=== PATIENT | female | born 1935 | race Caucasian/White ===

== ENCOUNTER 2016-12-26 09:24 | Observation (INO) ==
[2016-12-26] MEDS ORDERED: 0.9 % Sodium Chloride 1,000 ML IVC ONE (09:57)
[2016-12-26] MEDS ORDERED: Ondansetron 4 MG/2 ML VIAL IVP ONE (09:57)
--- NOTE | 2016-12-26 10:02 | Emergency Department Note ---
Disposition Clinical Impression: Syncopal episodes Qualifiers: Syncope type: unspecified Qualified Code(s): R55 - Syncope and collapse Disposition: Admitted As Inpatient Condition: Fair Time of Disposition: 13:00 Syncope HPI - General Chief Complaint: ED Fall Stated Complaint: Fall Time Seen by Provider: 12/26/16 09:35 Source: EMS Mode of arrival: EMS Limitations: no limitations Nursing Notes Reviewed: Yes Vital Signs Reviewed: Yes - History of Present Illness HPI Narrative: She presents to the emergency department brought in by EMS squad. Apparently this morning she was making her Tea for her breakfast and felt faint that she was going to throw out did make it to the table set down but then passed out and family found her under the kitchen table. She apparently was out for approximately 3 minutes which at that time she was incontinent of some urine which is a new finding for her. She has had one previous episode of syncope. At this time she complains of no headache she has lightly nauseous but she states that the nausea is something that she deals with on a day-to-day basis. She had a TIA approximately 15 years ago with no residual effects. He does have arthritis and is on methotrexate on a daily basis. At this time she complains of her right knee is slightly sore where she fell, states that there is some bruising. She does have ice on this knee at this time. No other complaints. Pt Subjective Complaint: loss of consciousness Onset (ago): [employer] Duration: minutes(s) (2) Description of Event: incontinence Prodromal Symptoms: none Injuries Sustained Associated with Event: other (bruising to the right knee ) Current Symptoms: nausea History: none Treatments prior to arrival: none Associated trauma secondary to event: No - Related Data Home Medications Medication Instructions Recorded Confirmed Alprazolam [Xanax] 0.5 mg PO BID 03/05/15 12/26/16 Clopidogrel [Plavix] 75 mg PO QAM 03/05/15 12/26/16 Folic Acid 0.4 mg PO BID 03/05/15 12/26/16 Indapamide [Lozol] 1.25 mg PO QAM 03/05/15 12/26/16 Methotrexate [Otrexup] 25 mg PO TU 03/05/15 12/26/16 Metoprolol XL (24 HR) Succ [Toprol 50 mg PO BID 03/05/15 12/26/16 XL] Ramipril [Altace] 10 mg PO DAILY 03/05/15 12/26/16 Ranitidine HCl [Zantac] 300 mg PO BID PRN 03/05/15 12/26/16 Aspirin 81 mg PO DAILY 12/26/16 12/26/16 Allergies Allergy/AdvReac Type Severity Reaction Status Date / Time Cephalosporins Allergy Hives Verified 08/07/15 16:42 Penicillins Allergy Hives Verified 08/07/15 16:42 Propoxycaine Allergy Hives Verified 08/07/15 16:42 Sulfa (Sulfonamide Allergy Hives Verified 08/07/15 16:42 Antibiotics) acetaminophen [From [place]] AdvReac Nausea Verified 08/07/15 16:42 hydrocodone [From [place]] AdvReac Nausea Verified 08/07/15 16:42 All systems ED: reviewed and negative except as stated. Constitutional: Denies: fever, chills, weakness, weight change Eyes: Denies: eye pain, eye discharge, vision change ENT ED: Denies: ear pain, throat pain, dental pain, hearing loss, epistaxis, congestion, dysphagia Cardiovascular: Denies: chest pain, palpitations, dyspnea on exertion, edema, syncope Respiratory: Denies: cough, dyspnea, wheezes, hemoptysis, stridor Gastrointestinal: Reports: nausea. Denies: abdominal pain, vomiting, diarrhea, constipation, hematemesis, melena, hematochezia Genitourinary: Denies: dysuria, frequency, hematuria, discharge Musculoskeletal: Reports: other (right knee pain ) Integumentary: Denies: rash, abrasion, lesions Past Medical History - Past Medical History Attestation: Yes The following information was validated with the patient. Source: patient, nursing notes reviewed Medical history: Reports: COPD, fibromyalgia, hyperlipidemia, hypertension, peripheral artery disease, RA, TIA Surgical history: Reports: carotid endarterectomy, cholecystectomy Psychiatric history: Reports: no psych history - Social History Smoking Status: Former smoker Smokeless Tobacco Status: No Alcohol use: Reports: none Drug use: Reports: none Physical Exam - General Limitations: no limitations General appearance: alert, in no apparent distress - Head Head exam: atraumatic, normocephalic, normal inspection - Eye Eye exam: Present: normal appearance, PERRL, EOMI - ENT ENT exam: normal exam, normal oropharynx, mucous membranes moist - Neck Neck exam: Present: normal inspection, full ROM, trachea midline - Chest Chest inspection: Present: normal inspection, symmetric chest wall rise - Respiratory Respiratory exam: Present: normal lung sounds bilaterally - Cardiovascular Cardiovascular exam: Present: regular rate, normal rhythm, normal heart sounds - Abdominal Exam Abdominal exam: Present: soft, Non-Tender, normal bowel sounds. Absent: tenderness, distention, guarding, rebound, rigidity - Extremities Exam Extremities exam: Present: normal inspection, full ROM. Absent: tenderness, pedal edema - Expanded Lower Extremity Exam Hip/Pelvis exam: Present: normal inspection, full ROM Upper leg exam: Present: normal inspection, full ROM Knee exam: Present: tenderness (right ), ecchymosis (minimal) Lower leg exam: Present: normal inspection, full ROM Ankle exam: Present: normal inspection, full ROM Foot/toe exam: Present: normal inspection, full ROM Neurovascular/Tendon exam: Absent: motor deficit, sensory deficit, tendon deficit - Back Exam Back exam: Present: normal inspection, full ROM. Absent: tenderness - Neurological Exam Neurological exam: Present: alert, oriented X3, CN II-XII intact, normal gait, reflexes normal - Psychiatric Psychiatric exam: Present: normal affect, normal mood - Skin Skin exam: Present: warm, dry, intact, normal color Course - Reevaluation(s) Reevaluation #1: discussed lab and xray results up to this point. Advised that if CT negative then likely will discharge patient to home. Daughter is in disagreement with this plan and upset that we may send her home. She states she feels patient needs to stay in the hospital, as she states patient was unable to talk with her for "a full 2 minutes, and that's not right, she's never done that before". Patient was also incontinent at that time, and this is a new finding for her, she has never had any incontinence. She is now complaining of pain in the right hand and ecchymosis of the right thumb that was not there previously. Will order xray of hand and thumb for further evaluation. Time: 11:15 - Consultations Consultation #1: hospitalist paged for admission Time: 12:45 Vital Signs Temperature 98.1 F 12/26/16 09:26 Pulse Rate 72 12/26/16 09:26 Respiratory Rate 18 12/26/16 09:26 Blood Pressure 116/86 12/26/16 09:26 O2 Sat by Pulse Oximetry 96 12/26/16 09:26 Temperature 98.1 F 12/26/16 09:26 Pulse Rate 62 12/26/16 12:32 Respiratory Rate 16 12/26/16 13:54 Blood Pressure 152/63 12/26/16 13:54 O2 Sat by Pulse Oximetry 97 12/26/16 12:32 Oxygen Delivery Oxygen Delivery Room Air Syncope - Lab Data Result diagrams: 12/26/16 10:07 12/26/16 10:07 Lab Results 12/26/16 12/26/16 12/26/16 Range/Units 10:07 10:07 10:07 WBC 7.1 (4.3-11.1) K/mcL RBC 3.32 L (3.82-4.97) M/mcL Hgb 10.3 L (11.5-15.4) g/dL Hct 29.9 L (35.3-44.9) % MCV 90.1 (83.0-100.0) fL MCH 31.0 (28.0-33.3) pg MCHC 34.4 (31.6-35.5) g/dL RDW 14.2 (11.5-14.5) % Plt Count 263 (140-400) K/mcL MPV 9.0 L (9.4-12.4) fL Immature Gran % 0.3 (0-4) % Seg Neutrophils % 76.5 % Lymphocytes % 14.5 % Monocytes % 6.9 % Eosinophils % 1.7 % Basophils % 0.1 % Neutrophils # 5.4 (1.6-8.9) K/mcL Lymphocytes # 1.0 (0.6-4.6) K/mcL Monocytes # 0.5 (0.0-1.3) K/mcL Eosinophils # 0.1 (0.0-0.6) K/mcL Basophils # 0.0 (0.0-0.2) K/mcL PT 12.3 H (9.4-12.1) Seconds INR 1.1 Sodium 125 L (136-145) mEq/L Potassium 3.6 (3.5-4.5) mEq/L Chloride 86 L (98-109) mEq/L Carbon Dioxide 30 H (19-29) mEq/L BUN 12 (7-20) mg/dL Creatinine 0.97 (0.57-1.11) mg/dL Est GFR ( Amer) > 60 (> 60) Est GFR (Non-Af Amer) 55 L (> 60) BUN/Creatinine Ratio 12 (6-26) Glucose 111 H (70-99) mg/dL Calculated Osmolality 260 L (280-300) Calcium 9.3 (8.6-10.8) mg/dL Total Bilirubin 0.6 (0.2-1.2) mg/dL AST 17 (5-34) Units/L ALT 11 (0-55) Units/L Alkaline Phosphatase 57 (38-126) Units/L Troponin I (0-0.03) ng/mL Serum Total Protein 6.5 (6.0-8.3) g/dL Albumin 3.3 L (3.5-5.0) g/dL Globulin 3.2 (2.4-3.5) g/dL Albumin/Globulin Ratio 1.0 L (1.1-2.2) 12/26/16 Range/Units 10:20 WBC (4.3-11.1) K/mcL RBC (3.82-4.97) M/mcL Hgb (11.5-15.4) g/dL Hct (35.3-44.9) % MCV (83.0-100.0) fL MCH (28.0-33.3) pg MCHC (31.6-35.5) g/dL RDW (11.5-14.5) % Plt Count (140-400) K/mcL MPV (9.4-12.4) fL Immature Gran % (0-4) % Seg Neutrophils % % Lymphocytes % % Monocytes % % Eosinophils % % Basophils % % Neutrophils # (1.6-8.9) K/mcL Lymphocytes # (0.6-4.6) K/mcL Monocytes # (0.0-1.3) K/mcL Eosinophils # (0.0-0.6) K/mcL Basophils # (0.0-0.2) K/mcL PT (9.4-12.1) Seconds INR Sodium (136-145) mEq/L Potassium (3.5-4.5) mEq/L Chloride (98-109) mEq/L Carbon Dioxide (19-29) mEq/L BUN (7-20) mg/dL Creatinine (0.57-1.11) mg/dL Est GFR ( Amer) (> 60) Est GFR (Non-Af Amer) (> 60) BUN/Creatinine Ratio (6-26) Glucose (70-99) mg/dL Calculated Osmolality (280-300) Calcium (8.6-10.8) mg/dL Total Bilirubin (0.2-1.2) mg/dL AST (5-34) Units/L ALT (0-55) Units/L Alkaline Phosphatase (38-126) Units/L Troponin I 0.02 (0-0.03) ng/mL Serum Total Protein (6.0-8.3) g/dL Albumin (3.5-5.0) g/dL Globulin (2.4-3.5) g/dL Albumin/Globulin Ratio (1.1-2.2)
[2016-12-26 10:24] LABS: Basophils % 0.1 %; Eosinophils # 0.1 K/mcL (0.0-0.6); Eosinophils % 1.7 %; Hematocrit 29.9 % (35.3-44.9); Hemoglobin 10.3 g/dL (11.5-15.4); Immature Granulocytes % 0.3 % (0-4); Lymphocytes % 14.5 %; Mean Corpuscular HGB Conc 34.4 g/dL (31.6-35.5); Mean Corpuscular Volume 90.1 fL (83.0-100.0); Monocytes # 0.5 K/mcL (0.0-1.3); Monocytes % 6.9 %; Neutrophils # 5.4 K/mcL (1.6-8.9); Platelet Count 263 K/mcL (140-400); Red Blood Count 3.32 M/mcL (3.82-4.97); Red Cell Distribution Width 14.2 % (11.5-14.5); Segmented Neutrophils % 76.5 %
[2016-12-26 10:28] LABS: INR 1.1; Prothrombin Time 12.3 Seconds (9.4-12.1)
[2016-12-26 10:39] LABS: Alanine Aminotransferase 11 Units/L (0-55); Albumin 3.3 g/dL (3.5-5.0); Alkaline Phosphatase 57 Units/L (38-126); Aspartate Amino Transferase 17 Units/L (5-34); BUN/Creatinine Ratio 12 (6-26); Bilirubin,Total 0.6 mg/dL (0.2-1.2); Blood Urea Nitrogen 12 mg/dL (7-20); Calcium 9.3 mg/dL (8.6-10.8); Carbon Dioxide 30 mEq/L (19-29); Chloride 86 mEq/L (98-109); Globulin 3.2 g/dL (2.4-3.5); Glucose 111 mg/dL (70-99); Osmolality,Calculated 260 (280-300); Potassium 3.6 mEq/L (3.5-4.5); Sodium 125 mEq/L (136-145); Total Protein 6.5 g/dL (6.0-8.3); eGFR For African Americans > 60 (> 60); eGFR For Non-African Americans 55 (> 60)
[2016-12-26] MEDS ORDERED: Naloxone 0.4 MG/ML INJ IVP PRN (13:35)
[2016-12-26] MEDS ORDERED: Famotidine 20 MG TABLET PO PRN (13:55)
--- NOTE | 2016-12-26 14:10 | Internal Med History&Physical ---
Date of Encounter: 12/26/16 Time of Encounter: 14:01 Assessment and Plan (1) Syncope and collapse Current visit: Yes Status: Acute We will place the patient on observation. We will provide equipment monitor phototypesetting. Trend troponin. Obtain echocardiogram and carotid Doppler's to evaluate for cardiogenic syncope. Obtain orthostatic vital signs. Obtain EEG to rule out seizure given reported tremors and bladder incontinence. (2) Carotid artery stenosis Current visit: Yes Status: Acute Repeat carotid Dopplers. Qualifiers: Laterality: bilateral Qualified Code(s): I65.23 - Occlusion and stenosis of bilateral carotid arteries (3) Essential hypertension Current visit: Yes Status: Acute Continue with ramipril and metoprolol. Monitor blood pressure closely. Check orthostatics. (4) DVT prophylaxis Current visit: No Status: Acute Encourage early ambulation. No pharmacological prophylaxis indicated to expected short stay less than 24-hours and full ambulatory status. (5) Rheumatoid arthritis Current visit: No Status: Chronic Continue methotrexate. Oral pain medication. Qualifiers: Rheumatoid arthritis location: unspecified site Rheumatoid factor presence : unspecified presence Qualified Code(s): M06.9 - Rheumatoid arthritis, unspecified Internal Medicine - H&P: HPI Chief complaint: Syncope Admitted From: Emergency Dept Plans for Post Hospital Care: Home History of present illness: Ms. Lo is a 81 year old female with past medical history significant for TIA, hypertension, carotid stenosis and rheumatoid arthritis who presented to the hospital for syncope. The history is obtained from the patient and the patient's daughter was present during the event. Patient woke up this morning and as usual made herself a tea and while standing by the kitchen counter she started feeling weak and lightheaded. She walked towards the chair and felt faint. Soon thereafter her daughter heard a thud and found her sitting on the floor leaning against the furniture. She was unresponsive for about 2 minutes, she was drooling and her right arm was shaky. She had lost bladder continence during the event. After she came to she was fully aware of her surroundings had no amnesia, denied any chest pain or palpitation preceding or following the event. She was brought to the hospital where her initial workup was negative. Review of systems positive for chronic pain secondary to rheumatoid arthritis, chronic constipation, history of syncope long time ago while sitting on a commode. Negative for dysuria urinary frequency and incontinence other than today's event. Positive for hearing loss and age-related vision impairment. The remainder of a temporary review of systems was negative. Past medical and surgical history: As per the history of present illness. Additionally positive for renal artery stenosis, renal artery stent placement, carotid endarterectomy. Family history positive for for stroke and the patient's mother and colon cancer in the patient's father. Social history: Patient has a remote history of smoking quit more than 20 years ago, denies alcohol and recreational drug use. She lives with her daughter and she is physically active. Past Med Surg Social Fam HX - Past Medical History Medical history: COPD, fibromyalgia, hyperlipidemia, hypertension, peripheral artery disease, RA, TIA Psychiatric history: no psych history - Past Surgical History Surgical History: carotid endarterectomy, cholecystectomy - Social History Smoking Status: Former smoker Smokeless Tobacco Status: No Alcohol use: none Drug use: none Internal Medicine - H&P: Meds Alprazolam [Xanax] 0.5 mg PO BID 03/05/15 [History] Clopidogrel [Plavix] 75 mg PO QAM 03/05/15 [History] Folic Acid 0.4 mg PO BID 03/05/15 [History] Indapamide [Lozol] 1.25 mg PO QAM 03/05/15 [History] Methotrexate [Otrexup] 25 mg PO TU 03/05/15 [History] Metoprolol XL (24 HR) Succ [Toprol XL] 50 mg PO BID 03/05/15 [History] Ramipril [Altace] 10 mg PO DAILY 03/05/15 [History] Ranitidine HCl [Zantac] 300 mg PO BID PRN 03/05/15 [History] Aspirin 81 mg PO DAILY 12/26/16 [History] Allergies Cephalosporins Allergy (Verified 08/07/15 16:42) Hives Penicillins Allergy (Verified 08/07/15 16:42) Hives Propoxycaine Allergy (Verified 08/07/15 16:42) Hives Sulfa (Sulfonamide Antibiotics) Allergy (Verified 08/07/15 16:42) Hives acetaminophen [From [place]] Adverse Reaction (Verified 08/07/15 16:42) Nausea hydrocodone [From [place]] Adverse Reaction (Verified 08/07/15 16:42) Nausea All Systems PM: A 10-system review of systems was performed and is negative for pertinent findings except as documented above in the HPI. - Constitutional Vitals: Temp Pulse Resp BP Pulse Ox 98.1 F 62 16 152/63 97 12/26/16 09:26 12/26/16 12:32 12/26/16 13:54 12/26/16 13:54 12/26/16 12:32 General appearance: Present: A&O X 3 - Neck Neck exam general surgery: Present: supple, trachea midline. Absent: lymphadenopathy - Respiratory Respiratory exam: Present: CTAB. Absent: accessory muscle use, rales, rhonchi, wheezes - Cardiovascular Cardiovascular exam: Present: RRR, +S1, +S2. Absent: diastolic murmur, gallop, rubs, systolic murmur - GI/Abdominal GI/Abdominal exam: Present: normal bowel sounds, soft, no peritoneal signs. Absent: distended, tenderness - Extremities Exam Extremities exam: Present: warm, radial pulses palpable and symetrical. Absent : calf tenderness, cyanotic, pedal edema - Neurological Exam Neurological exam: Present: CN II-XII intact, oriented X3, no focal deficits. Absent: pronater drift, facial droop, speech deficit - Skin Skin exam: Present: dry, intact Internal Med - H&P Results - Labs CBC & Chem 7: 12/26/16 10:07 12/26/16 10:07 Labs: Short CBC 12/26/16 Range/Units 10:07 WBC 7.1 (4.3-11.1) K/mcL Hgb 10.3 L (11.5-15.4) g/dL Hct 29.9 L (35.3-44.9) % Plt Count 263 (140-400) K/mcL Neutrophils # 5.4 (1.6-8.9) K/mcL BMP 12/26/16 10:07 Sodium 125 L Potassium 3.6 Chloride 86 L Carbon Dioxide 30 H BUN 12 Creatinine 0.97 Glucose 111 H Calcium 9.3 Cardiac Enzymes 12/26/16 Range/Units 10:20 Troponin I 0.02 (0-0.03) ng/mL Liver Function 12/26/16 Range/Units 10:07 Total Bilirubin 0.6 (0.2-1.2) mg/dL AST 17 (5-34) Units/L ALT 11 (0-55) Units/L Alkaline Phosphatase 57 (38-126) Units/L Albumin 3.3 L (3.5-5.0) g/dL - EKG Data -: EKG Interpreted by Myself EKG shows normal: sinus rhythm (70 bpm, LVH with no ST or T-wave changes.) - Impressions ITS Impressions Per medical records review: Echocardiogram from February 2015 reveals 60% EF, normal LV systolic function. Carotid Dopplers from February 2016 shows 30-49% left ICA stenosis, normal right ICA with nonstenotic plaque. Knee X-Ray 12/26/16 09:57 IMPRESSION: 1. No acute radiographic finding to account for patient's right knee pain. D/ / Tony Neri MD / Tony Neri MD Interpreting Provider: Tony Neri MD Head CT 12/26/16 10:06 IMPRESSION: 1. No acute intracranial abnormality. D/ / 12/26/2016 11:15:31 Tony Neri MD / jovanni Interpreting Provider: Tony Neri MD Hand X-Ray 12/26/16 11:10 IMPRESSION: Soft tissue swelling without acute or focal bony abnormality. D/ / Madhavi Muller Cha, MD / Madhavi Muller Cha, MD Interpreting Provider: Madhavi Muller Cha, MD
[2016-12-26 14:38] LABS: Bilirubin,Urine Negative (Negative); Blood,Urine Negative (Negative); Clarity,Urine Clear (Clear); Color,Urine Yellow (Yellow); Glucose,Urine (UA) Normal (Normal); Ketones,Urine Negative (Negative); Leukocyte Esterase,Urine Small (Negative); Nitrite,Urine Negative (Negative); PH,Urine 6.5 pH Units (5.0-8.0); Protein,Urine Negative (Neg-Trace); Specific Gravity,Urine 1.008 (1.010-1.025); Urobilinogen,Urine Normal (Normal)
[2016-12-26 14:39] LABS: Bacteria,Urine None Seen per hpf (None-Few); Hyaline Casts,Urine None Seen per lpf (None-Few); RBC,Urine 0-3 per hpf (0-3); Squamous Epithelial Cell,Urine Many per lpf (None-Few); WBC,Urine 0-3 per hpf (0-3)
[2016-12-26] MEDS: 0.9 % Sodium Chloride 1,000 ML IVC SCH (16:12)
--- NOTE | 2016-12-26 17:14 | Carotid Imaging Report ---
Carotid Duplex Patient Name:Amie Lo Order Number:[id number] Procedure Date:12/26/2016 Date:6Age:81 yrs Gender:Female Location:[facility] Room #: Electrical Engineering Teacher:Christel Lomax RVT Referring MD:Yesenia Morton, LINE REPAIRER hydrology technician:Arsenio Valdez MD Reading MD:Edu Frye MD , FACS Primary Indications:syncope Risk Factors Yes/No Hypertension Yes Smoker Previous Yes Anticoagulants Yes Previous Vascular Surgery Yes Hypercholesterolemia Yes Impressions: Findings: Right carotid system has nonstenotic plaque. Findings: Left proximal ICA has a moderate, 40-59% stenosis. Findings Prior Intervention: The patient has undergone the following procedure: endarterectomy of the internal carotid artery on the right. Carotid Duplex: Right: There is nonstenotic plaque in the right distal common carotid artery. There is smooth homogeneous plaque. There is nonstenotic plaque in the right bifurcation. There is smooth homogeneous plaque. There is nonstenotic plaque in the right proximal internal carotid artery. There is smooth homogeneous plaque. There is nonstenotic plaque in the right mid internal carotid artery. There is smooth homogeneous plaque. There is nonstenotic plaque in the right eca. There is smooth homogeneous plaque. Left: There is nonstenotic plaque in the left bifurcation. There is smooth heterogeneous plaque. There is nonstenotic plaque in the left mid internal carotid artery. There is smooth homogeneous plaque. There is nonstenotic plaque in the left eca. There is smooth homogeneous plaque. Carotid Results Right PSV EDV Assessment Proximal CCA 78 16 Normal Mid CCA 80 18 Normal Distal CCA 96 20 Non Stenotic Plaque Bifurcation 72 18 Non Stenotic Plaque Proximal ICA 82 14 Non Stenotic Plaque Mid ICA 103 26 Non Stenotic Plaque Distal ICA 80 19 Normal ECA 63 0 Non Stenotic Plaque Vertebral Artery 68 18 Antegrade Flow Left PSV EDV Assessment Proximal CCA 89 14 Normal Mid CCA 100 16 Normal Distal CCA 79 14 Normal Bifurcation 81 15 Non Stenotic Plaque Proximal ICA 124 32 40-59% stenosis Mid ICA 99 25 Non Stenotic Plaque Distal ICA 61 12 Normal ECA 75 0 Non Stenotic Plaque Vertebral Artery 74 6 Antegrade Flow Ratio's Right ICA/CCA Ratio: 1.28 ICA/CCA Values: 103/80 Left ICA/CCA Ratio: 1.24 ICA/CCA Values: 124/100 Updated by Edu Frye MD, FACS on 12/26/2016 5:07:55 PM Edu Frye MD electronically signed on 12/26/2016 5:08:29 PM with status of Final
[2016-12-26] MEDS ORDERED: ALPRAZolam 0.5 MG TABLET PO ONE (20:23)
[2016-12-26] MEDS: Metoprolol XL (24 HR) Succ 50 MG TAB.ER.24H PO SCH (20:59)
[2016-12-27 03:55] LABS: Basophils % 0.1 %; Eosinophils # 0.2 K/mcL (0.0-0.6); Eosinophils % 2.3 %; Hemoglobin 9.5 g/dL (11.5-15.4); Immature Granulocytes % 0.4 % (0-4); Lymphocytes # 1.9 K/mcL (0.6-4.6); Lymphocytes % 21.6 %; Mean Corpuscular HGB Conc 33.9 g/dL (31.6-35.5); Mean Corpuscular Hemoglobin 30.7 pg (28.0-33.3); Mean Corpuscular Volume 90.6 fL (83.0-100.0); Mean Platelet Volume 9.2 fL (9.4-12.4); Monocytes # 0.6 K/mcL (0.0-1.3); Neutrophils # 5.9 K/mcL (1.6-8.9); Platelet Count 261 K/mcL (140-400); Red Blood Count 3.09 M/mcL (3.82-4.97); Red Cell Distribution Width 14.2 % (11.5-14.5); Segmented Neutrophils % 68.6 %
[2016-12-27 04:12] LABS: BUN/Creatinine Ratio 9 (6-26); Blood Urea Nitrogen 7 mg/dL (7-20); Carbon Dioxide 29 mEq/L (19-29); Chloride 94 mEq/L (98-109); Chol/HDL Ratio 4.5 (0-4.9); Cholesterol 149 mg/dL (< 200); Glucose 97 mg/dL (70-99); HDL Cholesterol 33 mg/dL (40-59); LDL Cholesterol,Calculated 97 mg/dL (0-99); Magnesium 1.4 mg/dL (1.6-2.6); Osmolality,Calculated 270 (280-300); Potassium 3.4 mEq/L (3.5-4.5); Sodium 131 mEq/L (136-145); Triglycerides 95 mg/dL (< 150); eGFR For African Americans > 60 (> 60); eGFR For Non-African Americans > 60 (> 60)
[2016-12-27] MEDS: 0.9 % Sodium Chloride 1,000 ML IVC SCH (05:39)
[2016-12-27] MEDS: Metoprolol XL (24 HR) Succ 50 MG TAB.ER.24H PO SCH ×2 (08:50→21:01)
[2016-12-27] MEDS: Folic Acid 1 MG TABLET PO SCH (08:50)
[2016-12-27] MEDS: Aspirin 81 MG TAB.CHEW PO SCH (08:50)
[2016-12-27] MEDS: Lisinopril 20 MG TABLET PO SCH (08:51)
[2016-12-27] MEDS ORDERED: SODIUM CHLORIDE/NAHCO3/KCL/PEG 4,000 ML SOLN.RECON PO ONE (14:29)
[2016-12-27] MEDS ORDERED: Magnesium Sulfate 1 GM in D5% in Water 100 ML IVPB ONE (14:31)
[2016-12-27] MEDS ORDERED: Acetaminophen 325 MG TABLET PO PRN (14:34)
[2016-12-27] MEDS ORDERED: traMADol 50 MG TABLET PO PRN (14:34)
[2016-12-27] MEDS ORDERED: *HR* Morphine 2 MG/ML SYRINGE IVP PRN (14:34)
[2016-12-27] MEDS ORDERED: *HR* Promethazine 25 MG/ML VIAL IVP PRN (14:34)
[2016-12-27] MEDS ORDERED: Ondansetron 4 MG/2 ML VIAL IVP PRN (14:34)
--- NOTE | 2016-12-27 14:38 | Internal Med Progress Note ---
Date of Encounter: 12/27/16 Time of Encounter: 13:30 - Assessment and plan (1) Syncope and collapse Current Visit: Yes Status: Acute Assessment and plan: Unclear causation at this time. Knee x-ray negative. Head CT negative. Hand x -ray negative. Carotid duplex with moderate stenosis on the left and otherwise unremarkable. Echocardiogram unremarkable with ejection fraction of 60-65% with mild diastolic dysfunction. Patient euvolemic on examination. EEG still pending. Patient is stating on this episode, she remembers having severe lower abdominal pain with the strong urge to defecate right before she passed out. Patient's syncopal episode was witnessed by her daughter who states that the patient was out for 2 minutes. Patient stating that she has had this before where she was sitting on a toilet and bearing down she passed out. Suspect that episode may have been vasovagal however the episode that brought her to the hospital this visit could possibly be related to ischemic colitis with her small vessel disease history of RA as a potentially contributing factor. Patient states that after she has a severe bouts of lower abdominal pain with a severe urge to defecate, that her stool changes consistency and turns into what appears to be "worms." She states they are not actual worms in that they are not moving but they appeared worm like. She denies any hematochezia or nohemi blood. Spoke to GI doctor Lorenza. Plan is for bowel prep tonight with colonoscopy tomorrow. Anemia slightly lower than norm- guiac pending. ITS Impressions Knee X-Ray 12/26/16 09:57 IMPRESSION: 1. No acute radiographic finding to account for patient's right knee pain. D/ / Tony Neri MD / Tony Neri MD Interpreting Provider: Tony Neri MD Head CT 12/26/16 10:06 IMPRESSION: 1. No acute intracranial abnormality. D/ / 12/26/2016 11:15:31 Tony Neri MD / jovanni Interpreting Provider: Tony Neri MD Hand X-Ray 12/26/16 11:10 IMPRESSION: Soft tissue swelling without acute or focal bony abnormality. D/ / Madhavi Muller Cha, MD / Madhavi Muller Cha, MD Interpreting Provider: Madhavi Muller Cha, MD Echocardiogram impressions: LVEF 60-65%. Normal LV chamber size, wall thickness and function. Mild left ventricular diastolic dysfunction. Normal right ventricular structure and function. Mild aortic regurgitation. No evidence of pulmonary hypertension. (2) Ischemic colitis Current Visit: Yes Status: Suspected Assessment and plan: See prior note for syncope and collapse (3) Abnormal urinalysis Current Visit: Yes Status: Ruled-out Assessment and plan: Urine culture negative. Patient denies dysuria. Urinary tract infection ruled out. (4) Hyponatremia Current Visit: No Status: Chronic Assessment and plan: Acute on chronic and stable. Improved since admission, associated with osmolality. Patient and her daughter stated the patient does not eat hardly anything. We will trend. (5) Rheumatoid arthritis Current Visit: No Status: Chronic Assessment and plan: On methotrexate Qualifiers: Rheumatoid arthritis location: unspecified site Rheumatoid factor presence : unspecified presence Qualified Code(s): M06.9 - Rheumatoid arthritis, unspecified (6) Carotid artery disease Current Visit: No Status: Chronic Assessment and plan: Carotid duplex revealing nonstenotic plaque on the right, moderate stenosis on the left. Follow-up outpatient Carotid duplex impressions: Findings: Right carotid system is nonstenotic plaque. Findings: Left proximal ICA has a moderate, 40-59% stenosis. (7) DVT prophylaxis Current Visit: No Status: Acute Assessment and plan: Observation patient. Pharmacological prophylaxis contraindicated secondary to anemia, patient is doing a bowel prep tonight so IPC's are not reasonable. Possibly discharge tomorrow pending clinical outcomes, will readdress tomorrow if indicated (8) HTN (hypertension) Current Visit: No Status: Chronic Assessment and plan: Controlled, we will continue to trend (9) Hypokalemia Current Visit: No Status: Acute Assessment and plan: Mild, will replete and trend. Also associated with hypomagnesemia. (10) Anemia Current Visit: No Status: Chronic Assessment and plan: Currently slightly lower than her norm although appears stable. Investigated in October with normal iron levels, normal B12 and TSH levels. Folate levels slightly high. Likely anemia of chronic disease, but we will check a guaiac. Qualifiers: Anemia type: unspecified type Qualified Code(s): D64.9 - Anemia, unspecified (11) MGUS (monoclonal gammopathy of unknown significance) Current Visit: No Status: Chronic - Subjective Interval history: Patient seen and examined. On examination, patient sitting upright in bed eating lunch. Patient stating that she is not currently having any pain and currently denies weakness. She states that she has been able to ambulate to and from the bathroom without difficulty. - Constitutional Vitals: Temp Pulse Resp BP Pulse Ox 97.9 F 72 17 124/72 98 12/27/16 11:06 12/27/16 11:06 12/27/16 11:06 12/27/16 11:06 12/27/16 11:06 General appearance: Present: A&O X 3, pleasant, no acute distress, answers questions appropriately - Head Head exam: Present: atraumatic, normocephalic - Eye Eye exam: Present: PERRL, conjuntiva pink, sclera anicteric Pupils: Present: PERRL - Neck Neck exam general surgery: Present: supple, trachea midline. Absent: lymphadenopathy - Respiratory Respiratory exam: Present: CTAB. Absent: accessory muscle use, rales, respiratory distress, rhonchi, wheezes - Cardiovascular Cardiovascular exam: Present: RRR, +S1, +S2. Absent: diastolic murmur, gallop, rubs, systolic murmur - GI/Abdominal GI/Abdominal exam: Present: normal bowel sounds, soft, no peritoneal signs. Absent: distended, tenderness - Extremities Exam Extremities exam: Present: warm, radial pulses palpable and symetrical. Absent : calf tenderness, cyanotic, pedal edema - Neurological Exam Neurological exam: Present: alert, CN II-XII intact, oriented X3, no focal deficits, strengths equal and symetr throughout. Absent: pronater drift, facial droop, speech deficit - Skin Skin exam: Present: dry, intact, pallor, warm Internal Medicine: Result - Labs CBC & Chem 7: 12/27/16 03:26 12/27/16 03:26 Labs: Short CBC 12/27/16 Range/Units 03:26 WBC 8.6 (4.3-11.1) K/mcL Hgb 9.5 L (11.5-15.4) g/dL Hct 28.0 L (35.3-44.9) % Plt Count 261 (140-400) K/mcL Neutrophils # 5.9 (1.6-8.9) K/mcL BMP 12/27/16 03:26 Sodium 131 L Potassium 3.4 L Chloride 94 L Carbon Dioxide 29 BUN 7 Creatinine 0.82 Glucose 97 Calcium 9.0 Cardiac Enzymes 12/26/16 12/26/16 Range/Units 16:10 21:43 Troponin I 0.03 0.02 (0-0.03) ng/mL Urine 12/26/16 Range/Units 14:28 Urine Color Yellow (Yellow) Urine Clarity Clear (Clear) Urine pH 6.5 (5.0-8.0) pH Units Ur Specific [place] 1.008 L (1.010-1.025) Urine Protein Negative (Neg-Trace) mg/dL Urine Glucose (UA) Normal (Normal) mg/dL - ABG Interpretation ABG results: PT/INR, D-dimer PT 12.3 Seconds (9.4-12.1) H 12/26/16 10:07 Consult Discharge Plan - Plan Referrals: Arsenio Valdez MD [Primary Care Provider] -
[2016-12-27] MEDS: ALPRAZolam 0.5 MG TABLET PO SCH ×2 (14:57→21:01)
[2016-12-28] MEDS: Metoprolol XL (24 HR) Succ 50 MG TAB.ER.24H PO SCH (05:14)
[2016-12-28 05:34] LABS: Basophils % 0.2 %; Eosinophils # 0.2 K/mcL (0.0-0.6); Eosinophils % 1.7 %; Hematocrit 29.8 % (35.3-44.9); Hemoglobin 10.2 g/dL (11.5-15.4); Immature Granulocytes % 0.4 % (0-4); Lymphocytes # 1.4 K/mcL (0.6-4.6); Lymphocytes % 14.6 %; Mean Corpuscular HGB Conc 34.2 g/dL (31.6-35.5); Mean Corpuscular Hemoglobin 31.6 pg (28.0-33.3); Mean Corpuscular Volume 92.3 fL (83.0-100.0); Mean Platelet Volume 9.3 fL (9.4-12.4); Monocytes # 0.7 K/mcL (0.0-1.3); Monocytes % 6.9 %; Neutrophils # 7.3 K/mcL (1.6-8.9); Platelet Count 279 K/mcL (140-400); Red Blood Count 3.23 M/mcL (3.82-4.97); Red Cell Distribution Width 14.6 % (11.5-14.5); Segmented Neutrophils % 76.2 %
[2016-12-28 05:49] LABS: BUN/Creatinine Ratio 9 (6-26); Blood Urea Nitrogen 7 mg/dL (7-20); C-Reactive Protein 18 mg/L (Less than 5); Calcium 9.3 mg/dL (8.6-10.8); Carbon Dioxide 27 mEq/L (19-29); Chloride 97 mEq/L (98-109); Glucose 103 mg/dL (70-99); Magnesium 1.6 mg/dL (1.6-2.6); Osmolality,Calculated 274 (280-300); Potassium 3.6 mEq/L (3.5-4.5); Sodium 133 mEq/L (136-145); eGFR For African Americans > 60 (> 60); eGFR For Non-African Americans > 60 (> 60)
[2016-12-28] MEDS: Lisinopril 20 MG TABLET PO SCH (07:51)
[2016-12-28] MEDS: ALPRAZolam 0.5 MG TABLET PO SCH (07:51)
[2016-12-28] MEDS: Folic Acid 1 MG TABLET PO SCH (07:52)
[2016-12-28] MEDS: Aspirin 81 MG TAB.CHEW PO SCH (07:52)
--- NOTE | 2016-12-28 12:10 | Gastroenterology Consult Note ---
<BautistaBen Lanier - Last Filed: 12/28/16 12:07> Date of Encounter: 12/28/16 Time of Encounter: 11:00 - Assessment and plan (1) Anemia Status: Chronic Assessment and plan: Continue to monitor CBC and transfuse PRBC as needed. Plan for colonoscopy today. Keep NPO. Qualifiers: Anemia type: unspecified type Qualified Code(s): D64.9 - Anemia, unspecified (2) Ischemic colitis Status: Suspected Assessment and plan: Plan for colonoscopy today to rule out other etiology of crampy abdominal pain and urge to defecate prior to syncope. (3) Syncope and collapse Status: Acute Assessment and plan: Management per primary team. - Time Spent With Patient Total time spent is greater than 50% in coordination of care (as documented) at patient's floor/unit and/or counseling patient: GI History of Present Illness - Data of Consult Patient: new to practice Consult date: 12/28/16 Requesting Physician: Gabi Newby - Consult Narrative Reason for consult: Abdominal pain, possible ischemic colitis History of present illness: Ms. oL is a 81 year old female with PMHx of COPD, myalgia, HLD, HTN, RA, TIA who presented to the hospital for syncope. Patient woke up this morning and as usual made herself a tea and while standing by the kitchen counter she started feeling weak and lightheaded. Pt reports lower abdominal pain with strong urge to defecate right before she passed out. The patient's daughter witnessed the event and states she was unresponsive for about 2 minutes. She had lost bladder continence during the event. After she came to she was fully aware of her surroundings had no amnesia, denied any chest pain or palpitation preceding or following the event. Patient stating that she has had this before where she was sitting on a toilet and bearing down when she passed out. Head CT negative. Carotid duplex with moderate stenosis on the left and otherwise unremarkable. Echo unremarkable with EF of 60-65% with mild diastolic dysfunction. Procedures: Colonoscopy 12/10/2005 Dr. Tucker: Nonspecific inflammation of the sigmoid colon. NSAIDs: ASA Anticoagulation: Plavix Past Med Surg Social Fam HX - Past Medical History Medical history: COPD, fibromyalgia, hyperlipidemia, hypertension, peripheral artery disease, RA, TIA Psychiatric history: no psych history - Past Surgical History Surgical History: carotid endarterectomy, cataract, cholecystectomy - Social History Smoking Status: Former smoker Smokeless Tobacco Status: No Alcohol use: none Drug use: none - Family History Mother Hx Family Cardiac Disorders: Yes Father Hx Family Cardiac Disorders: Yes - Gastrointestinal Gastrointestinal: Present: as per HPI - Constitutional Constitutional: as per HPI - EENT Eyes: as per HPI Ears: Present: as per HPI Nose, mouth and throat: Present: as per HPI - Cardiovascular Cardiovascular ROS: Present: as per HPI - Respiratory Respiratory IM: Present: as per HPI - Genitourinary Genitourinary: Absent: change in color, Urinary frequency - Neurological ROS Neurological GI: Present: as per HPI - Hematologic/Lymphatic Hematologic/Lymphatic pediatric: Present: as per HPI - Musculoskeletal Musculoskeletal ROS GI: Present: as per HPI - Integumentary Integumentary GI: Present: as per HPI - Psychiatric ROS Psychiatric GI: Present: as per HPI - Endocrine Endocrine IM: Present: as per HPI - Constitutional Vitals: Temp Pulse Resp BP Pulse Ox 98.1 F 83 13 176/77 93 12/28/16 11:50 12/28/16 11:50 12/28/16 11:50 12/28/16 11:50 12/28/16 11:50 General appearance: Present: cooperative, A&O X 3, no acute distress, answers questions appropriately - Head Head exam: Present: atraumatic, normocephalic - Eye Eye exam: Present: normal appearance, sclera anicteric - ENT ENT exam: Present: mucous membranes dry - Neck Neck exam general surgery: Present: normal inspection, trachea midline - Respiratory Respiratory exam: Present: CTAB. Absent: decreased breath sounds, rales, rhonchi - Cardiovascular Cardiovascular exam: Present: RRR, +S1, +S2 - GI/Abdominal GI/Abdominal exam: Present: soft, no peritoneal signs. Absent: distended, firm , guarding, tenderness - Rectal Rectal exam: Present: deferred - Extremities Exam Extremities exam: Present: warm - Neurological Exam Neurological exam: Present: no focal deficits - Psychiatric Psychiatric exam: Present: normal affect, normal mood - Skin Skin exam: Present: dry, intact, normal color, warm Results - Labs CBC & Chem 7: 12/28/16 04:51 12/28/16 04:51 Labs: Last Result ESR 90 mm/hr (0-15) H 12/28/16 04:51 Calcium 9.3 mg/dL (8.6-10.8) 12/28/16 04:51 Troponin I 0.02 ng/mL (0-0.03) 12/26/16 21:43 C-Reactive Protein 18 mg/L (Less than 5) H 12/28/16 04:51 Triglycerides 95 mg/dL (< 150) 12/27/16 03:26 Entire Visit Hgb 10.2 g/dL (11.5-15.4) L 12/28/16 04:51 Hct 29.8 % (35.3-44.9) L 12/28/16 04:51 PT 12.3 Seconds (9.4-12.1) H 12/26/16 10:07 Total Bilirubin 0.6 mg/dL (0.2-1.2) 12/26/16 10:07 AST 17 Units/L (5-34) 12/26/16 10:07 ALT 11 Units/L (0-55) 12/26/16 10:07 - ABG ABG results: PT/INR, D-dimer PT 12.3 Seconds (9.4-12.1) H 12/26/16 10:07 Consult Discharge Plan - Plan Instructions: Colonoscopy (DC), Hyponatremia (DC) Additional Instructions: Follow-up with primary care provider within one to 2 weeks Referrals: Arsenio Valdez MD [Primary Care Provider] - 01/01/17 2:00 pm <Brittanie Britt - Last Filed: 12/29/16 13:44> Date of Encounter: 12/28/16 Time of Encounter: 13:00 - Time Spent With Patient Total time spent is greater than 50% in coordination of care (as documented) at patient's floor/unit and/or counseling patient: GI History of Present Illness - Data of Consult Requesting Physician: Gabi Newby - Consult Narrative History of present illness: Ms. Lo is a 81 year old female - Constitutional Vitals: Temp Pulse Resp BP Pulse Ox 97.4 F L 74 15 175/85 99 12/28/16 16:28 12/28/16 16:28 12/28/16 16:28 12/28/16 16:28 12/28/16 16:28 Results - Labs CBC & Chem 7: 12/28/16 04:51 12/28/16 04:51 Labs: Last Result ESR 90 mm/hr (0-15) H 12/28/16 04:51 Calcium 9.3 mg/dL (8.6-10.8) 12/28/16 04:51 Troponin I 0.02 ng/mL (0-0.03) 12/26/16 21:43 C-Reactive Protein 18 mg/L (Less than 5) H 12/28/16 04:51 Triglycerides 95 mg/dL (< 150) 12/27/16 03:26 Entire Visit Hgb 10.2 g/dL (11.5-15.4) L 12/28/16 04:51 Hct 29.8 % (35.3-44.9) L 12/28/16 04:51 PT 12.3 Seconds (9.4-12.1) H 12/26/16 10:07 Total Bilirubin 0.6 mg/dL (0.2-1.2) 12/26/16 10:07 AST 17 Units/L (5-34) 12/26/16 10:07 ALT 11 Units/L (0-55) 12/26/16 10:07 - ABG ABG results: PT/INR, D-dimer PT 12.3 Seconds (9.4-12.1) H 12/26/16 10:07 - Attending Attestation I examined this patient and my medical decision-making was reviewed with the ELECTRICAL SUPERVISOR/PA/Advanced Practice Nurse/Resident Physician. I agree with the documented findings, disposition and treatment plan as described except to the extent set forth below.
--- NOTE | 2016-12-28 15:03 | Internal Med Progress Note ---
Date of Encounter: 12/28/16 Time of Encounter: 10:30 - Assessment and plan (1) Syncope and collapse Current Visit: Yes Status: Acute (2) Ischemic colitis Current Visit: Yes Status: Suspected (3) Abnormal urinalysis Current Visit: Yes Status: Ruled-out (4) Hyponatremia Current Visit: No Status: Chronic (5) Rheumatoid arthritis Current Visit: No Status: Chronic Qualifiers: Rheumatoid arthritis location: unspecified site Rheumatoid factor presence : unspecified presence Qualified Code(s): M06.9 - Rheumatoid arthritis, unspecified (6) Carotid artery disease Current Visit: No Status: Chronic (7) DVT prophylaxis Current Visit: No Status: Acute (8) HTN (hypertension) Current Visit: No Status: Chronic (9) Hypokalemia Current Visit: No Status: Acute (10) Anemia Current Visit: No Status: Chronic Qualifiers: Anemia type: unspecified type Qualified Code(s): D64.9 - Anemia, unspecified (11) MGUS (monoclonal gammopathy of unknown significance) Current Visit: No Status: Chronic - Subjective Interval history: Patient seen and examined. On examination, patient sitting upright in bed eating lunch. Patient stating that she is not currently having any pain and currently denies weakness. She states that she has been able to ambulate to and from the bathroom without difficulty. - Constitutional Vitals: Temp Pulse Resp BP Pulse Ox 98.1 F 82 16 174/76 93 12/28/16 11:50 12/28/16 14:23 12/28/16 14:23 12/28/16 14:23 12/28/16 14:23 General appearance: Present: A&O X 3, pleasant, no acute distress, answers questions appropriately Internal Medicine: Result - Labs CBC & Chem 7: 12/28/16 04:51 12/28/16 04:51 Labs: Short CBC 12/28/16 Range/Units 04:51 WBC 9.6 (4.3-11.1) K/mcL Hgb 10.2 L (11.5-15.4) g/dL Hct 29.8 L (35.3-44.9) % Plt Count 279 (140-400) K/mcL Neutrophils # 7.3 (1.6-8.9) K/mcL BMP 12/28/16 04:51 Sodium 133 L Potassium 3.6 Chloride 97 L Carbon Dioxide 27 BUN 7 Creatinine 0.82 Glucose 103 H Calcium 9.3 - ABG Interpretation ABG results: PT/INR, D-dimer PT 12.3 Seconds (9.4-12.1) H 12/26/16 10:07 Consult Discharge Plan - Plan Referrals: Arsenio Valdez MD [Primary Care Provider] -
--- NOTE | 2016-12-28 15:03 | Anesthesia Evaluation PreOp ---
Date of Encounter: 12/28/16 Time of Encounter: 14:18 - Past History Planned Operation: Colonoscopy Cardiac History: HTN (maintained on Ramipril, Metoprolol), Other (PVD s/p CEA maintained on Plavix. ECHO 12/26/16 - LVEF 60-65%, No SWMA, No Pulm Htn) Pulmonary History: COPD POLISH MAKER History: Syncope (and Fall prompting this hospitalization), Other (Hx of Fibromyalgia. Anxiety/Depression aminaitned on Xanax) Other Medical History: GERD (maintained on Zantac), Other (RA maintained on Methotraxate) Anesthesia History: No Prior Anesthetic Complications, Past Anesthesia (CEA, Michelle) Alcohol Use: none Drug use: none Medications and Allergies Alprazolam [Xanax] 0.5 mg PO BID 03/05/15 [History] Clopidogrel [Plavix] 75 mg PO QAM 03/05/15 [History] Folic Acid 0.4 mg PO BID 03/05/15 [History] Indapamide [Lozol] 1.25 mg PO QAM 03/05/15 [History] Methotrexate [Otrexup] 25 mg PO TU 03/05/15 [History] Metoprolol XL (24 HR) Succ [Toprol XL] 50 mg PO BID 03/05/15 [History] Ramipril [Altace] 10 mg PO DAILY 03/05/15 [History] Ranitidine HCl [Zantac] 300 mg PO BID PRN 03/05/15 [History] Aspirin 81 mg PO DAILY 12/26/16 [History] Allergies Cephalosporins Allergy (Verified 08/07/15 16:42) Hives Penicillins Allergy (Verified 08/07/15 16:42) Hives Propoxycaine Allergy (Verified 08/07/15 16:42) Hives Sulfa (Sulfonamide Antibiotics) Allergy (Verified 08/07/15 16:42) Hives acetaminophen [From [place]] Adverse Reaction (Verified 08/07/15 16:42) Nausea hydrocodone [From [place]] Adverse Reaction (Verified 08/07/15 16:42) Nausea - Meds/Allergy Pre-op Review Medications Reviewed: Yes Allergies Reviewed: Yes (Metoprolol) Beta Blockers on Current Med List: Yes If Beta Blockers taken, Date/Time (Last Dose taken): 12/28/16 @ 0514 Anesthesia Results - Labs 12/28/16 04:51 12/28/16 04:51 - Imaging EKG: image reviewed (65bpm SR w/1st degree AVB) Anesthesia Exam O2 Sat Height 1.6 m Weight 85.91 kg O2 Sat by Pulse Oximetry 93 O2 Sat by Pulse Oximetry 93 O2 Sat by Pulse Oximetry 96 O2 Sat by Pulse Oximetry 98 O2 Sat by Pulse Oximetry 99 O2 Sat by Pulse Oximetry 96 O2 Sat by Pulse Oximetry 95 Vital Signs Temp Pulse Resp BP Pulse Ox 98.1 F 72 18 116/86 96 12/26/16 09:26 12/26/16 09:26 12/26/16 09:26 12/26/16 09:26 12/26/16 09:26 Height: 5'3" Weight: 189# BMI = 34 NPO (# of Hours): MNoc - HEENT Pupil (Motor): Pupils equal, EOMI Mallampati: II Teeth: Edentulous Oral Opening: Greater than 3 - POLISH MAKER LOC: Oriented POLISH MAKER Motor: Normal RUE, Normal LUE, Normal RLE, Normal LLE, Normal Face POLISH MAKER Sensory: Normal: RUE, LUE, RLE, LLE, Face - Cardiac Rhythm: Regular Murmur: None - Pulmonary Breath Sounds: bilateral Clear Anesthesia Assess/Plan ASA Score: 3 (PVDz, RA, HTN, COPD, Syncope) Modified Monty Scale for Level of Consciousness: Cooperative, oriented, and tranquil Anesthetic Plan: General Monitoring Plan: Standard Monitors Recovery Plan: PACU Anes Supervising Prov Stmt: Pt seen/evaluated, R&B Discussed, questions answered and consent obtained. Magaly Larios MD
--- NOTE | 2016-12-28 15:28 | Discharge Summary ---
Date of Encounter: 12/28/16 Time of Encounter: 10:30 - Discharge Diagnosis (1) Syncope and collapse Priority: Primary Status: Acute Comments: Unclear causation at this time. Knee x-ray negative. Head CT negative. Hand x -ray negative. Carotid duplex with moderate stenosis on the left and otherwise unremarkable. Echocardiogram unremarkable with ejection fraction of 60-65% with mild diastolic dysfunction. Patient euvolemic on examination. EGD unremarkable. EEG results still pending- followup outpatient. (2) Ischemic colitis Priority: Primary Status: Suspected Comments: EGD unremarkable. (3) Abnormal urinalysis Priority: Primary Status: Ruled-out Comments: UCx negative (4) Hyponatremia Priority: Secondary Status: Chronic Comments: Acute on chronic and stable. Improved since admission, associated with hypoosmolality. Patient and her daughter stated the patient does not eat hardly anything. Followup outpatient (5) Rheumatoid arthritis Priority: Secondary Status: Chronic Qualifiers: Rheumatoid arthritis location: unspecified site Rheumatoid factor presence : unspecified presence Qualified Code(s): M06.9 - Rheumatoid arthritis, unspecified (6) Carotid artery disease Priority: Secondary Status: Chronic Comments: Carotid duplex revealing nonstenotic plaque on the right, moderate stenosis on the left. Follow-up outpatient Carotid duplex impressions: Findings: Right carotid system is nonstenotic plaque. Findings: Left proximal ICA has a moderate, 40-59% stenosis. (7) DVT prophylaxis Priority: Primary Status: Acute Comments: Observation patient. Pharmacological prophylaxis contraindicated secondary to anemia, patient had a bowel prep during her one night stay, so IPC's were not reasonable. (8) HTN (hypertension) Priority: Secondary Status: Chronic Comments: Controlled throughout most of the admission, became hypertensive on day of discharge however she did go through a bowel prep and was nothing by mouth for most of the day. Recommended the blood pressure checks at home, keeping a log, and following up outpatient. (9) Hypokalemia Priority: Primary Status: Resolved (10) Anemia Priority: Secondary Status: Chronic Comments: Stable. Investigated in October with normal iron levels, normal B12 and TSH levels. Folate levels slightly high. Likely anemia of chronic disease. Follow up outpatient Qualifiers: Anemia type: unspecified type Qualified Code(s): D64.9 - Anemia, unspecified (11) MGUS (monoclonal gammopathy of unknown significance) Priority: Secondary Status: Chronic - Discharge Medications Home Medications: Alprazolam [Xanax] 0.5 mg PO BID 03/05/15 [History] Clopidogrel [Plavix] 75 mg PO QAM 03/05/15 [History] Folic Acid 0.4 mg PO BID 03/05/15 [History] Indapamide [Lozol] 1.25 mg PO QAM 03/05/15 [History] Methotrexate [Otrexup] 25 mg PO TU 03/05/15 [History] Metoprolol XL (24 HR) Succ [Toprol XL] 50 mg PO BID 03/05/15 [History] Ramipril [Altace] 10 mg PO DAILY 03/05/15 [History] Ranitidine HCl [Zantac] 300 mg PO BID PRN 03/05/15 [History] Aspirin 81 mg PO DAILY 12/26/16 [History] Allergies/Adverse Reactions: Allergies Cephalosporins Allergy (Verified 08/07/15 16:42) Hives Penicillins Allergy (Verified 08/07/15 16:42) Hives Propoxycaine Allergy (Verified 08/07/15 16:42) Hives Sulfa (Sulfonamide Antibiotics) Allergy (Verified 08/07/15 16:42) Hives acetaminophen [From [place]] Adverse Reaction (Verified 08/07/15 16:42) Nausea hydrocodone [From [place]] Adverse Reaction (Verified 08/07/15 16:42) Nausea Procedures/tests Complete & Pending: Procedures Performed prior 72 hours Category Date Time Status EV carotid duplex imaging BI Routine Y 12/26/16 13:38 Completed EV echocardiogram Routine Y 12/26/16 13:37 Completed Date of admission: 12/26/16 13:14 Primary care physician: Arsenio Valdez MD Consults: 12/27/16 14:37 Consult to Gastroenterology [CONS] Routine Consulting Provider: Gastroenterology Flynn Reason for Consult: Here for witnessed syncopal episode. Had severe abdominal pain with urge to defecate just prior to episode. Has happened in the past. Spoke to Dr Claudia madsen in am Time Notified: 14:38 Call Completed: Yes 12/28/16 14:30 Consult to Interpret Exam [CONS] Routine Consulting Provider: Ben Melotn Consult to Interpret Exam: Interpret EEG Discharging clinician: Gabi Larson Anticipated date of discharge: 12/28/16 - Patient Status Disposition: Home, Self-Care Condition: Fair Functional capacity at discharge: independent ambulation Overall status at discharge: patient is progressing back to baseline - Discharge Instructions Follow Up With: Arsenio Valdez MD [Primary Care Provider] - Additional Instructions: Follow-up with primary care provider within one to 2 weeks - Diet and Activity Activity: increase activity as tolerated Diet: advance to your usual diet Hospital course: Ms. Lo is a 81 year old female with past medical history of COPD, fibromyalgia, hyperlipidemia, hypertension, PAD, are, TIA, carotid artery disease status post CEA, cholecystectomy. Patient presented to the emergency department with a chief complaint of syncope. Patient and the patient's daughter presented. Patient stating she woke up in the morning and made herself a tea and while she was standing by the kitchen counter, she started feeling weak and lightheaded. Patient stating she walked towards the chair and felt faint and soon thereafter her daughter heard a thud and found her sitting on the floor leaning against the furniture. Daughter states that the patient was unresponsive for approximately 2 minutes and stated that she was drooling and her right arm was shaking. No incontinence during the event. No postictal area. Patient denied chest pain or palpitations prior to the event. Workup in the emergency department revealing an abnormal urinalysis but was otherwise unremarkable. Knee x-ray unremarkable. Head CT negative. Hand x-ray negative for acute processes other than soft tissue swelling. Patient was admitted to the hospitalist service for further evaluation and management. Echocardiogram unremarkable with ejection fraction of 6065% and mild diastolic dysfunction. Patient euvolemic on examination throughout this admission. Carotid duplex unremarkable. Upon further discussion with the patient, she stated that just prior to her syncopal episode that she had severe abdominal cramping and then urge to defecate just prior to the syncopal event. This was concerning for ischemic colitis with her small vessel disease history of RA as a potentially contributing factor so GI was brought on board and performed an EGD. EGD revealing 2 polyps that were nonbleeding and were removed and was otherwise unremarkable. Urine culture was also negative which ruled out a urinary tract infection. Patient had no focal neurological weakness is present on examination during this admission. She was also able to ambulate without restriction so occupational and physical therapy evaluations were not indicated. She was discharged home in stable condition with close outpatient follow-up recommended. EEG results pending at time of discharge- follow-up with primary care team for results. ITS Impressions Knee X-Ray 12/26/16 09:57 IMPRESSION: 1. No acute radiographic finding to account for patient's right knee pain. D/ / Tony Neri MD / Tony Neri MD Interpreting Provider: Tony Neri MD Head CT 12/26/16 10:06 IMPRESSION: 1. No acute intracranial abnormality. D/ / 12/26/2016 11:15:31 Tony Neri MD / jovanni Interpreting Provider: Tony Neri MD Hand X-Ray 12/26/16 11:10 IMPRESSION: Soft tissue swelling without acute or focal bony abnormality. D/ / Madhavi Muller Cha, MD / Madhavi Muller Cha, MD Interpreting Provider: Madhavi Muller Cha, MD Echocardiogram impressions: LVEF 60-65%. Normal LV chamber size, wall thickness and function. Mild left ventricular diastolic dysfunction. Normal right ventricular structure and function. Mild aortic regurgitation. No evidence of pulmonary hypertension. Carotid duplex impressions: Findings: Right carotid system is nonstenotic plaque. Findings: Left proximal ICA has a moderate, 40-59% stenosis. Colonoscopy impression: Two 4 mm, nonbleeding polyps in the cecum, removed with cold biopsy forceps. Resected and retrieved. The distal rectum and anal verge are normal on retroflexion view. Recommendation: Await pathology results. Repeat colonoscopy in 5 years for surveillance. - Time Spent with Patient Total time spent providing and/or coordinating discharge services: - Constitutional Vitals: Temp Pulse Resp BP Pulse Ox 98.1 F 82 16 174/76 93 12/28/16 11:50 12/28/16 14:23 12/28/16 14:23 12/28/16 14:23 12/28/16 14:23 General appearance: Present: A&O X 3, pleasant, no acute distress, answers questions appropriately - Head Head exam: Present: atraumatic, normocephalic - Eye Eye exam: Present: PERRL, conjuntiva pink, sclera anicteric Pupils: Present: PERRL - Neck Neck exam general surgery: Present: supple, trachea midline. Absent: lymphadenopathy - Respiratory Respiratory exam: Present: CTAB. Absent: accessory muscle use, rales, respiratory distress, rhonchi, wheezes - Cardiovascular Cardiovascular exam: Present: RRR, +S1, +S2. Absent: diastolic murmur, gallop, rubs, systolic murmur - GI/Abdominal GI/Abdominal exam: Present: normal bowel sounds, soft, no peritoneal signs. Absent: distended, tenderness - Extremities Exam Extremities exam: Present: warm, radial pulses palpable and symetrical. Absent : calf tenderness, cyanotic, pedal edema - Neurological Exam Neurological exam: Present: alert, CN II-XII intact, normal gait, oriented X3, no focal deficits, strengths equal and symetr throughout. Absent: pronater drift, facial droop, speech deficit - Skin Skin exam: Present: dry, intact, pallor, warm
[2016-12-28 16:30] VITALS: BP 175/85
--- NOTE | 2016-12-28 16:37 | Electrocardiograph Report ---
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
[2016-12-28] MEDS ORDERED: Ondansetron 4 MG/2 ML VIAL IVP ONE (17:24)
[2016-12-28] MEDS ORDERED: *HR* Propofol 500 MG/50 ML BOTTLE IVC ONE (17:24)
--- NOTE | 2016-12-28 18:46 | EEG/EMG/Oth Biometrics Report ---
EEG Procedure Report Date of procedure: 12/28/16 EEG Procedure: Routine EEG Procedure Note: This is a report of a 21 channel bipolar and referential montage EEG. A posterior dominant rhythm of 9 Hz moderate voltage alpha frequency is identified symmetrically in the posterior head regions. This rhythm attenuates symmetrically with eye opening. Hyperventilation was not performed in recording. There was no sleep architecture identified during this study. Photic stimulation is performed and does not produce a driving response. The EKG rhythm strip reveals normal sinus rhythm at 78 beats per minute. Impressions: This EEG recording is within normal limits. There is no evidence of epileptiform activity identified during the study. Comment: A normal EEG does not preclude a diagnosis of seizure or epilepsy. If the clinical suspicion for seizure activity is high, serial EEGs or perhaps a prolonged recording may increase the yield. Please correlate clinically.
== END 2016-12-28 17:25 | disposition home or self-care (01) ==
LOC: 3BNU 09:24 → EMEROO 09:24 → 3BNU 13:57
PROVIDERS: ADMIT Internal Medicine; ATTEND Nurse Practitioner Family
PROC: ENDOCBX (2016-12-28 14:00)

== ENCOUNTER 2017-04-01 21:46 | Inpatient (IN) ==
[2017-04-01] MEDS ORDERED: 0.9 % Sodium Chloride 1,000 ML IVC ONE (21:48)
--- NOTE | 2017-04-01 22:22 | Emergency Department Note ---
Disposition Clinical Impression: Transient confusion UTI (urinary tract infection) Qualifiers: Urinary tract infection type: site unspecified Hematuria presence: with hematuria Qualified Code(s): N39.0 - Urinary tract infection, site not specified ; R31.9 - Hematuria, unspecified Disposition: Admitted As Inpatient Condition: Fair Time of Disposition: 01:34 General Adult HPI - General Chief complaint: ED Altered Mental Status Stated complaint: confusion/UTI Time Seen by Provider: 04/01/17 21:48 Source: EMS Nursing Notes Reviewed: Yes Vital Signs Reviewed: Yes - History of Present Illness HPI Narrative: Patient is an 82-year-old female brought in by EMS secondary to confusion. Patient's daughter bedside states the patient's been having worsening confusion over the past month. Patient was started on antibiotics for UTI several days ago but reports worsening of her confusion from periodically during the day to now the night over the past 3 days. Pain Scale: 0 - Related Data Home Medications Medication Instructions Recorded Confirmed Alprazolam [Xanax] 0.5 mg PO BID 03/05/15 12/26/16 Clopidogrel [Plavix] 75 mg PO QAM 03/05/15 12/26/16 Folic Acid 0.4 mg PO BID 03/05/15 12/26/16 Indapamide [Lozol] 1.25 mg PO QAM 03/05/15 12/26/16 Methotrexate [Otrexup] 25 mg PO TU 03/05/15 12/26/16 Metoprolol XL (24 HR) Succ [Toprol 50 mg PO BID 03/05/15 12/26/16 XL] Ranitidine HCl [Zantac] 300 mg PO BID PRN 03/05/15 12/26/16 Aspirin 81 mg PO DAILY 12/26/16 12/26/16 Previous Rx's Medication Instructions Recorded Promethazine [Phenergan] 12.5 mg PO Q8HR PRN #20 tablet 03/24/17 Ramipril [Altace] 10 mg PO BID #60 capsule 03/24/17 Allergies Allergy/AdvReac Type Severity Reaction Status Date / Time Cephalosporins Allergy Hives Verified 04/01/17 21:57 Penicillins Allergy Hives Verified 04/01/17 21:57 Propoxycaine Allergy Hives Verified 04/01/17 21:57 Sulfa (Sulfonamide Allergy Hives Verified 04/01/17 21:57 Antibiotics) acetaminophen [From [facility]] AdvReac Nausea Verified 04/01/17 21:57 hydrocodone [From [facility]] AdvReac Nausea Verified 04/01/17 21:57 Limitations: ROS unobtainable due to patients medical condition Past Medical History - Past Medical History Attestation: Yes The following information was validated with the patient. Source: obtained from family Medical history: Reports: COPD, hyperlipidemia, hypertension, peripheral artery disease, RA, TIA Surgical history: Reports: carotid endarterectomy, cataract, cholecystectomy Psychiatric history: Reports: anxiety - Social History Smoking Status: Former smoker Smokeless Tobacco Status: No Alcohol use: Reports: none Drug use: Reports: none Physical Exam The patient is an 82-year-old female who is alert to herself, knows that she is here in the emergency department at [facility], unsure about the day. Patient's daughters besides says she is not acting herself. Patient states he caught a unintelligible words and repeat someone's name. Patient calling the providers names that belonged to her family members. Patient is acting childlike at times. Patient does follow direction with coaxing. Patient has no pronator drift and no unilateral weaknesses or decreased sensation on neurologic exam. - General Limitations: altered mental status General appearance: alert - Head Head exam: atraumatic, normocephalic, normal inspection - Eye Eye exam: Present: normal appearance, PERRL, EOMI - ENT ENT exam: normal exam, normal oropharynx, mucous membranes moist - Neck Neck exam: Present: normal inspection, full ROM, trachea midline - Chest Chest inspection: Present: normal inspection, symmetric chest wall rise - Respiratory Respiratory exam: Present: normal lung sounds bilaterally - Cardiovascular Cardiovascular exam: Present: regular rate, normal rhythm, normal heart sounds - Abdominal Exam Abdominal exam: Present: soft, Non-Tender. Absent: tenderness, distention, guarding, rebound, rigidity - Extremities Exam Extremities exam: Present: normal inspection, full ROM. Absent: tenderness, pedal edema - Expanded Lower Extremity Exam Hip/Pelvis exam: Present: normal inspection, full ROM Upper leg exam: Present: normal inspection, full ROM Knee exam: Present: normal inspection, full ROM Lower leg exam: Present: normal inspection, full ROM Ankle exam: Present: normal inspection, full ROM Foot/toe exam: Present: normal inspection, full ROM Neurovascular/Tendon exam: Absent: motor deficit, sensory deficit, tendon deficit Course Vital Signs Temperature 98.0 F 04/01/17 21:52 Pulse Rate 82 04/01/17 21:52 Respiratory Rate 18 04/01/17 21:52 Blood Pressure 228/102 04/01/17 21:52 O2 Sat by Pulse Oximetry 99 04/01/17 21:52 Temperature 98.0 F 04/01/17 21:52 Pulse Rate 82 04/01/17 21:52 Respiratory Rate 16 04/02/17 00:47 Blood Pressure 158/67 04/02/17 00:47 O2 Sat by Pulse Oximetry 99 04/01/17 21:52 Oxygen Delivery Oxygen Delivery Room Air Medical Decision Making - MDM Narrative Medical decision making narrative: Patient presents with worsening confusion from her normal baseline of intermittent during the day to now at night as well over the past 3 days. Patient has no focal deficits, patient's private was otherwise unremarkable with a negative head CT. Negative troponins, and negative EKG for signs of ischemia. Patient does have a UTI on urinalysis check. Patient has started outpatient treatment for UTI several days ago but continues to decline. Patient lives alone and is currently unable to take care of herself. Plans for admission. Patient's daughter at bedside agrees with plan for admission. Patient started on ceftriaxone and ciprofloxacin IV. Patient is anemic but hemoglobin is at patient's baseline over the last several checks Patient is accepted for admission by hospitalist Dr. Parr. - Lab Data Lab results reviewed: Yes I reviewed the patient's lab results. Lab results narrative: Short CBC 04/01/17 Range/Units 22:07 WBC 8.3 (4.3-11.1) K/mcL Hgb 10.8 L (11.5-15.4) g/dL Hct 32.7 L (35.3-44.9) % Plt Count 241 (140-400) K/mcL Neutrophils # 5.8 (1.6-8.9) K/mcL BMP 04/01/17 Range/Units 22:07 Sodium 136 (136-145) mEq/L Potassium 3.6 (3.5-4.5) mEq/L Chloride 100 (98-109) mEq/L Carbon Dioxide 26 (19-29) mEq/L BUN 12 (7-20) mg/dL Creatinine 1.01 (0.57-1.11) mg/dL Glucose 114 H (70-99) mg/dL Calcium 10.1 (8.6-10.8) mg/dL Cardiac Enzymes 04/01/17 Range/Units 22:07 Troponin I 0.01 (0-0.03) ng/mL Liver Function 04/01/17 Range/Units 22:07 Total Bilirubin 0.6 (0.2-1.2) mg/dL Direct Bilirubin 0.2 (0.0-0.5) mg/dL AST 24 (5-34) Units/L ALT 17 (0-55) Units/L Alkaline Phosphatase 62 (38-126) Units/L Albumin 3.9 (3.5-5.0) g/dL Urine 04/01/17 Range/Units 23:30 Urine Color Yellow (Yellow) Urine Clarity Clear (Clear) Urine pH 6.5 (5.0-8.0) pH Units Ur Specific [place] 1.010 (1.010-1.025) Urine Protein Negative (Neg-Trace) mg/dL Urine Glucose (UA) Normal (Normal) mg/dL Result diagrams: 04/01/17 22:07 04/01/17 22:07 Lab Results 04/01/17 04/01/17 04/01/17 Range/Units 22:07 22:07 22:07 WBC 8.3 (4.3-11.1) K/mcL RBC 3.58 L (3.82-4.97) M/mcL Hgb 10.8 L (11.5-15.4) g/dL Hct 32.7 L (35.3-44.9) % MCV 91.3 (83.0-100.0) fL MCH 30.2 (28.0-33.3) pg MCHC 33.0 (31.6-35.5) g/dL RDW 14.2 (11.5-14.5) % Plt Count 241 (140-400) K/mcL MPV 9.4 (9.4-12.4) fL Immature Gran % 0.2 (0-4) % Seg Neutrophils % 69.8 % Lymphocytes % 21.4 % Monocytes % 5.9 % Eosinophils % 2.5 % Basophils % 0.2 % Neutrophils # 5.8 (1.6-8.9) K/mcL Lymphocytes # 1.8 (0.6-4.6) K/mcL Monocytes # 0.5 (0.0-1.3) K/mcL Eosinophils # 0.2 (0.0-0.6) K/mcL Basophils # 0.0 (0.0-0.2) K/mcL PT 12.5 H (9.4-12.1) Seconds INR 1.2 APTT 31.1 (26.0-36.0) Seconds VBG pH (7.32-7.42) pH Units VBG pCO2 (41-51) mmHg VBG pO2 (25-40) mmHg VBG HCO3 (21-27) mEq/L Sodium 136 (136-145) mEq/L Potassium 3.6 (3.5-4.5) mEq/L Chloride 100 (98-109) mEq/L Carbon Dioxide 26 (19-29) mEq/L BUN 12 (7-20) mg/dL Creatinine 1.01 (0.57-1.11) mg/dL Est GFR ( Amer) > 60 (> 60) Est GFR (Non-Af Amer) 53 L (> 60) BUN/Creatinine Ratio 12 (6-26) Glucose 114 H (70-99) mg/dL Calculated Osmolality 283 (280-300) Calcium 10.1 (8.6-10.8) mg/dL Total Bilirubin 0.6 (0.2-1.2) mg/dL Direct Bilirubin 0.2 (0.0-0.5) mg/dL Indirect Bilirubin 0.4 (0.0-1.2) mg/dL AST 24 (5-34) Units/L ALT 17 (0-55) Units/L Alkaline Phosphatase 62 (38-126) Units/L Troponin I (0-0.03) ng/mL Serum Total Protein 7.8 (6.0-8.3) g/dL Albumin 3.9 (3.5-5.0) g/dL Globulin 3.9 H (2.4-3.5) g/dL Albumin/Globulin Ratio 1.0 L (1.1-2.2) TSH 0.705 (0.350-4.840) mcIU/mL Urine Color (Yellow) Urine Clarity (Clear) Urine pH (5.0-8.0) pH Units Ur Specific [place] (1.010-1.025) Urine Protein (Neg-Trace) mg/dL Urine Glucose (UA) (Normal) mg/dL Urine Ketones (Negative) mg/dL Urine Blood (Negative) Urine Nitrite (Negative) Urine Bilirubin (Negative) Urine Urobilinogen (Normal) mg/dL Ur Leukocyte Esterase (Negative) Urine Microscopic RBC (0-3) per hpf Urine Microscopic WBC (0-3) per hpf Ur Squamous Epith Cells (None-Few) per lpf Urine Bacteria (None-Few) per hpf Hyaline Casts (None-Few) per lpf Ur Culture Indicated? (NO) Urine Opiates Screen (Qzgkmn=850) ng/mL Ur Barbiturates Screen (Ydrczo=745) ng/mL Ur Phencyclidine Scrn (Cutoff=25) ng/mL Ur Amphetamines Screen (Ouxowf=4150) ng/mL U Benzodiazepines Scrn (Xasvxw=881) ng/mL Urine Cocaine Screen (Cutoff= 300) ng/mL U Marijuana (THC) Screen (Cutoff = 50) ng/mL Ethyl Alcohol < 10 (0-10) mg/dL 04/01/17 04/01/17 04/01/17 Range/Units 22:07 22:07 23:30 WBC (4.3-11.1) K/mcL RBC (3.82-4.97) M/mcL Hgb (11.5-15.4) g/dL Hct (35.3-44.9) % MCV (83.0-100.0) fL MCH (28.0-33.3) pg MCHC (31.6-35.5) g/dL RDW (11.5-14.5) % Plt Count (140-400) K/mcL MPV (9.4-12.4) fL Immature Gran % (0-4) % Seg Neutrophils % % Lymphocytes % % Monocytes % % Eosinophils % % Basophils % % Neutrophils # (1.6-8.9) K/mcL Lymphocytes # (0.6-4.6) K/mcL Monocytes # (0.0-1.3) K/mcL Eosinophils # (0.0-0.6) K/mcL Basophils # (0.0-0.2) K/mcL PT (9.4-12.1) Seconds INR APTT (26.0-36.0) Seconds VBG pH 7.39 (7.32-7.42) pH Units VBG pCO2 52 H (41-51) mmHg VBG pO2 52 H (25-40) mmHg VBG HCO3 32 H (21-27) mEq/L Sodium (136-145) mEq/L Potassium (3.5-4.5) mEq/L Chloride (98-109) mEq/L Carbon Dioxide (19-29) mEq/L BUN (7-20) mg/dL Creatinine (0.57-1.11) mg/dL Est GFR ( Amer) (> 60) Est GFR (Non-Af Amer) (> 60) BUN/Creatinine Ratio (6-26) Glucose (70-99) mg/dL Calculated Osmolality (280-300) Calcium (8.6-10.8) mg/dL Total Bilirubin (0.2-1.2) mg/dL Direct Bilirubin (0.0-0.5) mg/dL Indirect Bilirubin (0.0-1.2) mg/dL AST (5-34) Units/L ALT (0-55) Units/L Alkaline Phosphatase (38-126) Units/L Troponin I 0.01 (0-0.03) ng/mL Serum Total Protein (6.0-8.3) g/dL Albumin (3.5-5.0) g/dL Globulin (2.4-3.5) g/dL Albumin/Globulin Ratio (1.1-2.2) TSH (0.350-4.840) mcIU/mL Urine Color Yellow (Yellow) Urine Clarity Clear (Clear) Urine pH 6.5 (5.0-8.0) pH Units Ur Specific [place] 1.010 (1.010-1.025) Urine Protein Negative (Neg-Trace) mg/dL Urine Glucose (UA) Normal (Normal) mg/dL Urine Ketones Negative (Negative) mg/dL Urine Blood Negative (Negative) Urine Nitrite Negative (Negative) Urine Bilirubin Negative (Negative) Urine Urobilinogen Normal (Normal) mg/dL Ur Leukocyte Esterase Trace H (Negative) Urine Microscopic RBC 0-3 (0-3) per hpf Urine Microscopic WBC 5-15 H (0-3) per hpf Ur Squamous Epith Cells Many H (None-Few) per lpf Urine Bacteria None Seen (None-Few) per hpf Hyaline Casts None Seen (None-Few) per lpf Ur Culture Indicated? YES A (NO) Urine Opiates Screen (Duekxg=776) ng/mL Ur Barbiturates Screen (Ttlwwc=326) ng/mL Ur Phencyclidine Scrn (Cutoff=25) ng/mL Ur Amphetamines Screen (Alaxch=1510) ng/mL U Benzodiazepines Scrn (Acbnbv=342) ng/mL Urine Cocaine Screen (Cutoff= 300) ng/mL U Marijuana (THC) Screen (Cutoff = 50) ng/mL Ethyl Alcohol (0-10) mg/dL 04/01/17 Range/Units 23:30 WBC (4.3-11.1) K/mcL RBC (3.82-4.97) M/mcL Hgb (11.5-15.4) g/dL Hct (35.3-44.9) % MCV (83.0-100.0) fL MCH (28.0-33.3) pg MCHC (31.6-35.5) g/dL RDW (11.5-14.5) % Plt Count (140-400) K/mcL MPV (9.4-12.4) fL Immature Gran % (0-4) % Seg Neutrophils % % Lymphocytes % % Monocytes % % Eosinophils % % Basophils % % Neutrophils # (1.6-8.9) K/mcL Lymphocytes # (0.6-4.6) K/mcL Monocytes # (0.0-1.3) K/mcL Eosinophils # (0.0-0.6) K/mcL Basophils # (0.0-0.2) K/mcL PT (9.4-12.1) Seconds INR APTT (26.0-36.0) Seconds VBG pH (7.32-7.42) pH Units VBG pCO2 (41-51) mmHg VBG pO2 (25-40) mmHg VBG HCO3 (21-27) mEq/L Sodium (136-145) mEq/L Potassium (3.5-4.5) mEq/L Chloride (98-109) mEq/L Carbon Dioxide (19-29) mEq/L BUN (7-20) mg/dL Creatinine (0.57-1.11) mg/dL Est GFR ( Amer) (> 60) Est GFR (Non-Af Amer) (> 60) BUN/Creatinine Ratio (6-26) Glucose (70-99) mg/dL Calculated Osmolality (280-300) Calcium (8.6-10.8) mg/dL Total Bilirubin (0.2-1.2) mg/dL Direct Bilirubin (0.0-0.5) mg/dL Indirect Bilirubin (0.0-1.2) mg/dL AST (5-34) Units/L ALT (0-55) Units/L Alkaline Phosphatase (38-126) Units/L Troponin I (0-0.03) ng/mL Serum Total Protein (6.0-8.3) g/dL Albumin (3.5-5.0) g/dL Globulin (2.4-3.5) g/dL Albumin/Globulin Ratio (1.1-2.2) TSH (0.350-4.840) mcIU/mL Urine Color (Yellow) Urine Clarity (Clear) Urine pH (5.0-8.0) pH Units Ur Specific [place] (1.010-1.025) Urine Protein (Neg-Trace) mg/dL Urine Glucose (UA) (Normal) mg/dL Urine Ketones (Negative) mg/dL Urine Blood (Negative) Urine Nitrite (Negative) Urine Bilirubin (Negative) Urine Urobilinogen (Normal) mg/dL Ur Leukocyte Esterase (Negative) Urine Microscopic RBC (0-3) per hpf Urine Microscopic WBC (0-3) per hpf Ur Squamous Epith Cells (None-Few) per lpf Urine Bacteria (None-Few) per hpf Hyaline Casts (None-Few) per lpf Ur Culture Indicated? (NO) Urine Opiates Screen Negative (Cbkfbv=834) ng/mL Ur Barbiturates Screen Negative (Phwmpu=930) ng/mL Ur Phencyclidine Scrn Negative (Cutoff=25) ng/mL Ur Amphetamines Screen Negative (Xxohio=1104) ng/mL U Benzodiazepines Scrn Negative (Seewdw=173) ng/mL Urine Cocaine Screen Negative (Cutoff= 300) ng/mL U Marijuana (THC) Screen Negative (Cutoff = 50) ng/mL Ethyl Alcohol (0-10) mg/dL - Radiology Data Radiology results reviewed: Yes I reviewed the patient's radiology results. Chest X-Ray 04/01/17 21:48 IMPRESSION: No acute abnormality detected. D/ / Osmin Hodges MD / Osmin Hodges MD Interpreting Provider: Osmin Hodges MD Head CT 04/01/17 21:49 IMPRESSION: No acute intracranial abnormality. D/ / Gregory Felton MD / Gregory Felton MD Interpreting Provider: Gregory Felton MD
[2017-04-01 22:23] LABS: Basophils % 0.2 %; Eosinophils # 0.2 K/mcL (0.0-0.6); Eosinophils % 2.5 %; Hematocrit 32.7 % (35.3-44.9); Hemoglobin 10.8 g/dL (11.5-15.4); Immature Granulocytes % 0.2 % (0-4); Lymphocytes # 1.8 K/mcL (0.6-4.6); Lymphocytes % 21.4 %; Mean Corpuscular Hemoglobin 30.2 pg (28.0-33.3); Mean Corpuscular Volume 91.3 fL (83.0-100.0); Mean Platelet Volume 9.4 fL (9.4-12.4); Monocytes # 0.5 K/mcL (0.0-1.3); Monocytes % 5.9 %; Neutrophils # 5.8 K/mcL (1.6-8.9); Platelet Count 241 K/mcL (140-400); Red Blood Count 3.58 M/mcL (3.82-4.97); Red Cell Distribution Width 14.2 % (11.5-14.5); Segmented Neutrophils % 69.8 %
[2017-04-01 22:27] LABS: INR 1.2; Prothrombin Time 12.5 Seconds (9.4-12.1)
[2017-04-01 22:30] LABS: Activated Partial Thrombo Time 31.1 Seconds (26.0-36.0)
[2017-04-01 22:32] LABS: VBG PH 7.39 pH Units (7.32-7.42)
[2017-04-01 22:38] LABS: Alanine Aminotransferase 17 Units/L (0-55); Albumin 3.9 g/dL (3.5-5.0); Alkaline Phosphatase 62 Units/L (38-126); Aspartate Amino Transferase 24 Units/L (5-34); BUN/Creatinine Ratio 12 (6-26); Bilirubin,Direct 0.2 mg/dL (0.0-0.5); Bilirubin,Indirect 0.4 mg/dL (0.0-1.2); Bilirubin,Total 0.6 mg/dL (0.2-1.2); Blood Urea Nitrogen 12 mg/dL (7-20); Calcium 10.1 mg/dL (8.6-10.8); Carbon Dioxide 26 mEq/L (19-29); Chloride 100 mEq/L (98-109); Globulin 3.9 g/dL (2.4-3.5); Glucose 114 mg/dL (70-99); Osmolality,Calculated 283 (280-300); Potassium 3.6 mEq/L (3.5-4.5); Sodium 136 mEq/L (136-145); Total Protein 7.8 g/dL (6.0-8.3); eGFR For African Americans > 60 (> 60); eGFR For Non-African Americans 53 (> 60)
[2017-04-01 22:39] LABS: Ethanol < 10 mg/dL (0-10)
[2017-04-01 22:58] LABS: Thyroid Stimulating Hormone 0.705 mcIU/mL (0.350-4.840)
[2017-04-01 23:42] LABS: Bilirubin,Urine Negative (Negative); Blood,Urine Negative (Negative); Clarity,Urine Clear (Clear); Color,Urine Yellow (Yellow); Glucose,Urine (UA) Normal (Normal); Ketones,Urine Negative (Negative); Leukocyte Esterase,Urine Trace (Negative); Nitrite,Urine Negative (Negative); PH,Urine 6.5 pH Units (5.0-8.0); Protein,Urine Negative (Neg-Trace); Urobilinogen,Urine Normal (Normal)
[2017-04-01 23:44] LABS: Bacteria,Urine None Seen per hpf (None-Few); Hyaline Casts,Urine None Seen per lpf (None-Few); RBC,Urine 0-3 per hpf (0-3); Squamous Epithelial Cell,Urine Many per lpf (None-Few)
[2017-04-01 23:46] LABS: Amphetamine Screen,Urine Negative ng/mL (Cutoff=1000); Barbiturate Screen,Urine Negative ng/mL (Cutoff=200); Benzodiazepines Screen,Urine Negative ng/mL (Cutoff=200); Cannabinoid Screen,Urine Negative ng/mL (Cutoff = 50); Cocaine Screen,Urine Negative ng/mL (Cutoff= 300); Opiate Screen,Urine Negative ng/mL (Cutoff=300); Phencyclidine Screen,Urine Negative ng/mL (Cutoff=25)
--- NOTE | 2017-04-01 23:46 | Emergency Department Note ---
START Narrative - START START: I examined this patient and my medical decision-making was reviewed with the Resident Physician. I agree with the documented findings, disposition and treatment plan as described except to the extent set forth below. 82-year-old female with acute confusion and concern for UTI. No focal deficit on examination. CT scan of the brain shows no acute findings. No metabolic derangements identified. She is acutely confused and possible delirious. Plan to admit for evaluation of altered mental status.
[2017-04-02] MEDS ORDERED: *HR* Labetalol 20 MG/4 ML SYRINGE IVP ONE (00:16)
--- NOTE | 2017-04-02 02:33 | Internal Med History&Physical ---
<Francisco Javier Story - Last Filed: 04/02/17 02:45> Date of Encounter: 04/02/17 Time of Encounter: 02:10 Assessment and Plan (1) Hypertensive emergency Current visit: Yes Status: Acute Patient presented with blood pressure of 228/102. Reportedly having changes in blood pressure medications over the past few weeks, that likely contributed to her current hypertension. The patient's daughter reports recent, abrupt change in mental status that corresponds to difficulty controlling her blood pressure at home. Patient altered mental status likely from hypertensive encephalpathy. Possible PRESS syndrome. Initial head CT negative. EKG reviewed and was negative for concerning findings of ischemia. PRN labetolol for sys bp >180 will start 10 mg amlodipine continue patient home medications frequent vial assessments MRI brain will check electrolytes in am (2) Delirium Current visit: Yes Status: Acute Patient delirium could represent hypertensive encephalopathy from htn emergency. Her daughter reports that she has been becoming more altered over the past week and a half with acute worsening in the past 3 days. She states that she has been somewhat belligerent, yelling, and having some increased word finding behavior. The patient's blood pressure medications have been recently changed some in that she stopped her thiazide because of concerns of hyponatremia and her PCP was going to start her on increased dosage of ramipril. There was some concern that her UA showed a UTI, but in looking at both her recent UAs from the ED visit and outpatient, that seems unlikely. Plan as above (3) MGUS (monoclonal gammopathy of unknown significance) Current visit: No Status: Chronic Patient has history of MGUS. She sees Dr. Calhoun as outpatient. (4) Anemia Current visit: No Status: Chronic Patient has history of anemia with current hgb of 10.8 at her baseline. will continue to monitor with daily cbc Qualifiers: Anemia type: unspecified type Qualified Code(s): D64.9 - Anemia, unspecified (5) DVT prophylaxis Current visit: No Status: Acute 40 mg lovenox SQ daily (6) Rheumatoid arthritis Current visit: No Status: Chronic Patient receives methotrexate shots weekly. Stable Continue methotrexate shots as outpatient Qualifiers: Rheumatoid arthritis location: unspecified site Rheumatoid factor presence : unspecified presence Qualified Code(s): M06.9 - Rheumatoid arthritis, unspecified Internal Medicine - H&P: HPI Chief complaint: Altered mental status Plans for Post Hospital Care: Transfer [facility] History of present illness: Ms. Lo is a 82 year old female with past medical history of MGUS, prior TIA , hypertension, COPD, and RA who was brought to [facility] the EMS because of altered mental status. Patient unable to contribute to history, but daughter at bedside. Patient normally lives at home and lives independently, but over the past few weeks has been displaying increasing altered mental status and confusion. Patient's daughter reports this has acutely worsened the last 3 days corresponding to difficulty controlling patient's blood pressure. Patient has been having difficulty with blood pressure since her thiazide diuretic was stopped at a previous hospital visit due to hyponatremia. She has seen her PCP who is attempting to change her blood pressure medications around including increasing doses of ramipril, but was having difficulty with her current medications. Patient's son reports that during these episodes of high blood pressure patient also has some chest discomfort, blurry vision, as well as shortness of breath. Past Med Surg Social Fam HX - Past Medical History Medical history: COPD, hyperlipidemia, hypertension, peripheral artery disease, RA, TIA Psychiatric history: anxiety - Past Surgical History Surgical History: carotid endarterectomy, cataract, cholecystectomy - Social History Smoking Status: Former smoker Smokeless Tobacco Status: No Alcohol use: none Drug use: none - Family History Mother Adopted: [place]: nia Family Member Ethnicity: Non- Living Status: Age at : 60 Hx Family Cardiac Disorders: Yes Hx Family Respiratory Disorders: No Hx Family Cancer: No Hx Family GI Disorders: No Hx Family Genitourinary Disorders: No Hx Family Endocrine Disorder: No Hx Family Musculoskeletal Disorders: No Hx Family Neuromuscular Disorders: No Hx Family Neurologic Disorders: Yes (cva) Hx Family HEENT Disorders: No Hx Family Autoimmune Disorders: No Hx Family Reproductive Disorders: No Hx Family Psychosocial Disorders: No Hx Family Medical Disorders: No Father Name: nia Age at : 60 Hx Family Cardiac Disorders: Yes Hx Family Medical Disorders: No Internal Medicine - H&P: Meds Alprazolam [Xanax] 0.5 mg PO BID 03/05/15 [History] Clopidogrel [Plavix] 75 mg PO QAM 03/05/15 [History] Folic Acid 0.4 mg PO BID 03/05/15 [History] Indapamide [Lozol] 1.25 mg PO QAM 03/05/15 [History] Methotrexate [Otrexup] 25 mg PO TU 03/05/15 [History] Metoprolol XL (24 HR) Succ [Toprol XL] 50 mg PO BID 03/05/15 [History] Ranitidine HCl [Zantac] 300 mg PO BID PRN 03/05/15 [History] Aspirin 81 mg PO DAILY 12/26/16 [History] Ramipril [Altace] 10 mg PO BID #60 capsule 03/24/17 [Rx] 3 Allergy/AdvReac Type Severity Reaction Status Date / Time Cephalosporins Allergy Hives Verified 04/01/17 21:57 Penicillins Allergy Hives Verified 04/01/17 21:57 Propoxycaine Allergy Hives Verified 04/01/17 21:57 Sulfa (Sulfonamide Allergy Hives Verified 04/01/17 21:57 Antibiotics) acetaminophen [From [place]] AdvReac Nausea Verified 04/01/17 21:57 hydrocodone [From [place]] AdvReac Nausea Verified 04/01/17 21:57 ROS unobtainable: due to mental status - Constitutional Vitals: Temp Pulse Resp BP Pulse Ox 99.1 F 88 16 180/93 96 04/02/17 01:32 04/02/17 01:32 04/02/17 01:32 04/02/17 01:32 04/02/17 01:32 Exam: General: Patient pleasant but uncooperative, no acute distress, alert and oriented 2, does not answers questions appropriately HEENT: Normocephalic, atraumatic, neck supple, trachea midline, Conjunctiva pink , sclera anicteric, EOMI, PERRL, oral mucosa moist, no orophargeal erythema or exudates Respiratory: No accessory muscle usage, clear to auscultation bilaterally, no wheezes/rhonchi/rales appreciated Cardiovascular: Regular rate and rhythm, S1 and S2 present, no murmurs/rubs/ gallops/clicks appreciated GI/abdominal: Nondistended, nontender, soft, normal bowel sounds, no peritoneal signs Extremities: No calf tenderness, noncyanotic, no pedal edema appreciated, warm, lower extremity pulses palpable and symmetrical Neurological: Alert and oriented 2, no facial droop, no focal deficits, cranial nerves II through XII intact grossly, sensation light touch intact in upper and lower extremities bilaterally, unable to assess strength due to lack of patient cooperation, finger to nose accurate but tremors present Skin: Dry, intact, normal color Internal Med - H&P Results - Labs CBC & Chem 7: 04/01/17 22:07 04/01/17 22:07 <Lenin Bustos - Last Filed: 04/02/17 03:38> Date of Encounter: 04/02/17 Internal Medicine - H&P: HPI History of present illness: Ms. Lo is a 82 year old female All Systems PM: A 10-system review of systems was performed and is negative for pertinent findings except as documented above in the HPI. - Constitutional Vitals: Temp Pulse Resp BP Pulse Ox 99.1 F 88 16 180/93 96 04/02/17 01:32 04/02/17 01:32 04/02/17 01:32 04/02/17 01:32 04/02/17 01:32 Internal Med - H&P Results - Labs CBC & Chem 7: 04/01/17 22:07 04/01/17 22:07 - Attending Attestation I have independently seen and examined this patient on 04/02/17 and reviewed plan of care with the AIRLINE RESERVATIONIST/resident physician and the patients daughter at bedside Seen with daughter at bedside Brought in for persistent behavioral changes said to have started for about 3-4 days, after some changes in medications, both Methrotrexate and BP medications, patient has been treated also for UTI in the past week. Urine culture is negative 03/24/17 She has a PMH of HTN, RA , MGUS, COPD Bp on presentation was SBP>220, DBO >110. She is alert and oriented X2 but continues to yell move and no to me during eval. She has no other gross neurologic deficits, her chest is CTAB, HS S1, S2 only, no m/g/r, abdomen is soft and not tender, no pedal edema Labs and Imaging reviewed: Unremarkable. Urine looks better than prior sample A/P Acute encephalopathy possibly from HTN encephalopathy, Delirium, UTI On treatment. Etiology of delirium and behavioral changes at this time unknown. Obtain Brain MRI, Control blood pressure, resume home meds, send TSH, RPR, Vit B12. Rest of details as in resident physicians documentation
[2017-04-02] MEDS ORDERED: Ondansetron 4 MG/2 ML VIAL IVP PRN (02:37)
[2017-04-02] MEDS ORDERED: Naloxone 0.4 MG/ML INJ IVP PRN (02:37)
[2017-04-02] MEDS ORDERED: 0.9 % Sodium Chloride 1,000 ML IVC SCH (02:45)
[2017-04-02] MEDS ORDERED: *HR* Labetalol 20 MG/4 ML SYRINGE IVP PRN (03:05)
[2017-04-02] MEDS: amLODIPine 5 MG TABLET PO SCH (03:43)
[2017-04-02 05:05] LABS: Basophils % 0.3 %; Eosinophils # 0.1 K/mcL (0.0-0.6); Hematocrit 29.7 % (35.3-44.9); Hemoglobin 9.8 g/dL (11.5-15.4); Immature Granulocytes % 0.4 % (0-4); Lymphocytes % 12.1 %; Mean Corpuscular Hemoglobin 30.2 pg (28.0-33.3); Mean Corpuscular Volume 91.7 fL (83.0-100.0); Mean Platelet Volume 9.7 fL (9.4-12.4); Monocytes # 0.4 K/mcL (0.0-1.3); Monocytes % 5.5 %; Neutrophils # 6.5 K/mcL (1.6-8.9); Platelet Count 219 K/mcL (140-400); Red Blood Count 3.24 M/mcL (3.82-4.97); Red Cell Distribution Width 14.1 % (11.5-14.5); Segmented Neutrophils % 80.7 %
[2017-04-02 05:32] LABS: BUN/Creatinine Ratio 11 (6-26); Blood Urea Nitrogen 9 mg/dL (7-20); Calcium 9.2 mg/dL (8.6-10.8); Carbon Dioxide 24 mEq/L (19-29); Chloride 104 mEq/L (98-109); Glucose 114 mg/dL (70-99); Magnesium 1.6 mg/dL (1.6-2.6); Osmolality,Calculated 286 (280-300); Phosphorous 2.7 mg/dL (2.3-4.7); Potassium 3.5 mEq/L (3.5-4.5); Sodium 138 mEq/L (136-145); eGFR For African Americans > 60 (> 60); eGFR For Non-African Americans > 60 (> 60)
[2017-04-02] MEDS: *HR* Enoxaparin 40 MG/0.4 ML SYRINGE SQ SCH (06:11)
[2017-04-02] MEDS ORDERED: Pantoprazole 40 MG VIAL IVP SCH (06:30)
[2017-04-02] MEDS ORDERED: amLODIPine 5 MG TABLET PO SCH (09:00)
[2017-04-02] MEDS: Aspirin 81 MG TAB.CHEW PO SCH (09:28)
[2017-04-02] MEDS: Folic Acid 1 MG TABLET PO SCH ×3 (09:29→22:05)
[2017-04-02] MEDS: Metoprolol XL (24 HR) Succ 50 MG TAB.ER.24H PO SCH ×3 (09:30→22:05)
[2017-04-02] MEDS: ALPRAZolam 0.5 MG TABLET PO SCH ×3 (09:31→22:06)
[2017-04-02] MEDS: Lisinopril 20 MG TABLET PO SCH ×3 (09:31→22:06)
[2017-04-02] MEDS: Levofloxacin 500 MG/100 ML 500 MG/100 ML BAG IVPB SCH (16:25)
[2017-04-03 04:13] LABS: Basophils % 0.4 %; Eosinophils # 0.2 K/mcL (0.0-0.6); Eosinophils % 2.6 %; Hematocrit 32.1 % (35.3-44.9); Hemoglobin 10.6 g/dL (11.5-15.4); Immature Granulocytes % 0.5 % (0-4); Immature Platelets 1.9 % (1.1-6.1); Lymphocytes # 1.7 K/mcL (0.6-4.6); Lymphocytes % 20.3 %; Mean Corpuscular Hemoglobin 30.5 pg (28.0-33.3); Mean Corpuscular Volume 92.2 fL (83.0-100.0); Mean Platelet Volume 9.6 fL (9.4-12.4); Monocytes # 0.6 K/mcL (0.0-1.3); Monocytes % 7.3 %; Neutrophils # 5.9 K/mcL (1.6-8.9); Platelet Count 270 K/mcL (140-400); Red Blood Count 3.48 M/mcL (3.82-4.97); Red Cell Distribution Width 14.4 % (11.5-14.5); Segmented Neutrophils % 68.9 %
[2017-04-03 04:31] LABS: Alanine Aminotransferase 15 Units/L (0-55); Albumin 3.4 g/dL (3.5-5.0); Albumin/Globulin Ratio 0.9 (1.1-2.2); Alkaline Phosphatase 59 Units/L (38-126); Aspartate Amino Transferase 21 Units/L (5-34); BUN/Creatinine Ratio 10 (6-26); Bilirubin,Total 0.9 mg/dL (0.2-1.2); Blood Urea Nitrogen 8 mg/dL (7-20); Calcium 9.6 mg/dL (8.6-10.8); Carbon Dioxide 25 mEq/L (19-29); Chloride 102 mEq/L (98-109); Globulin 3.6 g/dL (2.4-3.5); Glucose 101 mg/dL (70-99); Osmolality,Calculated 282 (280-300); Potassium 3.6 mEq/L (3.5-4.5); Sodium 137 mEq/L (136-145); eGFR For African Americans > 60 (> 60); eGFR For Non-African Americans > 60 (> 60)
[2017-04-03] MEDS: *HR* Enoxaparin 40 MG/0.4 ML SYRINGE SQ SCH (06:15)
[2017-04-03] MEDS: Levofloxacin 500 MG/100 ML 500 MG/100 ML BAG IVPB SCH (09:14)
[2017-04-03] MEDS: Metoprolol XL (24 HR) Succ 50 MG TAB.ER.24H PO SCH (09:15)
[2017-04-03] MEDS: ALPRAZolam 0.5 MG TABLET PO SCH (09:15)
[2017-04-03] MEDS: Lisinopril 20 MG TABLET PO SCH (09:15)
[2017-04-03] MEDS: amLODIPine 5 MG TABLET PO SCH (09:16)
[2017-04-03] MEDS: Aspirin 81 MG TAB.CHEW PO SCH (09:16)
[2017-04-03] MEDS: Folic Acid 1 MG TABLET PO SCH (09:16)
[2017-04-03 10:56] VITALS: BP 145/84
--- NOTE | 2017-04-03 13:55 | Neurology - Consult Note ---
Date of Encounter: 04/03/17 Time of Encounter: 13:51 Assessment and Plan (1) Hypertensive emergency Current Visit: Yes Status: Acute I believe that her acute delirium was at least in part attributable to hypertensive encephalopathy. UTI may have been contributing as well as changes in her medications. However she does not have PRES. There is no evidence to suggest this on her MRI scan. There is no evidence to suspect Xanax withdrawal as she does not take it regularly. No evidence of cerebral infarct. No evidence of a central nervous system inflammatory or infectious process is present. Her cognition is improving daily. I expect that she will return to her normal baseline. I will reevaluate her at your request. History of Present Illness HPI: Ms. Lo is a 82 year old female who is being seen for neurologic consultation at the request of the hospitalist due to acute confusion. She presented to [facility] on 04/01/2017 with family members secondary to acute confusion. Apparently she has had recent changes in her antihypertensive regimen and is also been recently treated for urinary tract infection several days prior to admission. Upon admission however she was extremely hypertensive blood pressure of 228/102. Today however several family members are present and feel that she is approaching her normal baseline. She certainly awake alert and attentive to my assessment. She denies headache. She is not encephalopathic or somnolent. I did review her MRI personally and I see no evidence of posterior reversible encephalopathy syndrome. No evidence of acute infarct is present. There is however a left parietal arachnoid cyst. These are generally thought of as nonpathologic entities and rarely cause headaches or any other central nervous system pathology. Past Med Surg Social Fam HX - Past Medical History Medical history: COPD, hyperlipidemia, hypertension, peripheral artery disease, RA, TIA Psychiatric history: anxiety - Past Surgical History Surgical History: carotid endarterectomy, cataract, cholecystectomy - Social History Smoking Status: Former smoker Smokeless Tobacco Status: No Alcohol use: none Drug use: none - Family History Mother Adopted: [place]: nia Family Member Ethnicity: Non- Living Status: Age at : 60 Hx Family Cardiac Disorders: Yes Hx Family Respiratory Disorders: No Hx Family Cancer: No Hx Family GI Disorders: No Hx Family Genitourinary Disorders: No Hx Family Endocrine Disorder: No Hx Family Musculoskeletal Disorders: No Hx Family Neuromuscular Disorders: No Hx Family Neurologic Disorders: Yes (cva) Hx Family HEENT Disorders: No Hx Family Autoimmune Disorders: No Hx Family Reproductive Disorders: No Hx Family Psychosocial Disorders: No Hx Family Medical Disorders: No Father Name: nia Age at : 60 Hx Family Cardiac Disorders: Yes Hx Family Medical Disorders: No Medications and Allergies Alprazolam [Xanax] 0.5 mg PO BID 03/05/15 [History] Clopidogrel [Plavix] 75 mg PO QAM 03/05/15 [History] Folic Acid 0.4 mg PO BID 03/05/15 [History] Indapamide [Lozol] 1.25 mg PO QAM 03/05/15 [History] Metoprolol XL (24 HR) Succ [Toprol XL] 50 mg PO BID 03/05/15 [History] Aspirin 81 mg PO DAILY 12/26/16 [History] Ramipril [Altace] 10 mg PO BID #60 capsule 03/24/17 [Rx] Ciprofloxacin HCl [Cipro] 500 mg PO BID 04/02/17 [History] Methotrexate PFS 25 mg IJ QWEEK 04/02/17 [History] 3 Allergy/AdvReac Type Severity Reaction Status Date / Time Cephalosporins Allergy Hives Verified 04/01/17 21:57 Penicillins Allergy Hives Verified 04/01/17 21:57 Propoxycaine Allergy Hives Verified 04/01/17 21:57 Sulfa (Sulfonamide Allergy Hives Verified 04/01/17 21:57 Antibiotics) acetaminophen [From [place]] AdvReac Nausea Verified 04/01/17 21:57 hydrocodone [From [place]] AdvReac Nausea Verified 04/01/17 21:57 All Systems: A 10-system review of systems was performed and is negative for pertinent findings except as documented above in the HPI. Review of Systems: 10 point review of systems is consistent with a history of present illness and otherwise negative. Physical Examination - Vital Signs Vital Signs: Initial Vital Signs Temp Pulse Resp BP Pulse Ox 98.0 F 82 18 228/102 99 04/01/17 21:52 04/01/17 21:52 04/01/17 21:52 04/01/17 21:52 04/01/17 21:52 - Neurologic Detailed motor examination: full strength in all major muscle groups Motor examination - right side: 4/5: deltoids, biceps, triceps, wrist flexion, wrist extension, hip flexors, 5/5: siebel solution architect, tibialis Anterior, quadriceps, toe extension (EHL), plantarflexion Motor examination - left side: 45: deltoids, biceps, triceps, wrist flexion, wrist extension, hip flexors, quadriceps, 5/5: siebel solution architect, tibialis Anterior, toe extension (EHL), plantarflexion Detailed sensory examination: intact Reflex and gait examination: intact Mental Status Examination: awake, alert, oriented to person, oriented to place, oriented to time, follows commands appropriately, answers questions appropriately, no agnosia, no aphasia, no aproxia Cranial nerve examination: PERRL, EOMI, visual prabhakar intact, corneal reflexes brisk symmetrically, sensory to face intact, mastication intact, no facial asymmetry is present, no dysarthria, hearing is intact symmetrically, soft palate elevates bilaterally upon phonation, gag reflex intact, flexes SCM and trapezius muscles symmetrically with full power, tongue protrudes midline, no atrophy or facial fasiculations present Cerebellar examination: no dysmetria, performs finger to nose and heel to acevedo symmetrically without ataxia, no gait ataxia, no truncal ataxia, no difficulty with rapid alternating movements Results - Laboratory Findings CBC and BMP: 04/03/17 03:36 04/03/17 03:36 Abnormal lab findings: Abnormal lab results RBC 3.48 M/mcL (3.82-4.97) L 04/03/17 03:36 Hgb 10.6 g/dL (11.5-15.4) L 04/03/17 03:36 Hct 32.1 % (35.3-44.9) L 04/03/17 03:36 PT 12.5 Seconds (9.4-12.1) H 04/01/17 22:07 VBG pCO2 52 mmHg (41-51) H 04/01/17 22:07 VBG pO2 52 mmHg (25-40) H 04/01/17 22:07 VBG HCO3 32 mEq/L (21-27) H 04/01/17 22:07 Glucose 101 mg/dL (70-99) H 04/03/17 03:36 POC Glucose 166 (58-89) H 04/02/17 01:35 Albumin 3.4 g/dL (3.5-5.0) L 04/03/17 03:36 Globulin 3.6 g/dL (2.4-3.5) H 04/03/17 03:36 Albumin/Globulin Ratio 0.9 (1.1-2.2) L 04/03/17 03:36 Ur Leukocyte Esterase Trace (Negative) H 04/01/17 23:30 Urine Microscopic WBC 5-15 per hpf (0-3) H 04/01/17 23:30 Ur Squamous Epith Cells Many per lpf (None-Few) H 04/01/17 23:30 Ur Culture Indicated? YES (NO) A 04/01/17 23:30 Consult Discharge Plan - Plan Referrals: Paul Wagner MD [Primary Care Provider] -
--- NOTE | 2017-04-03 14:15 | Discharge Summary ---
Date of Encounter: 04/03/17 Time of Encounter: 14:08 - Discharge Diagnosis (1) Delirium Priority: Primary Status: Acute (2) Hypertensive emergency Priority: Primary Status: Acute (3) Rheumatoid arthritis Priority: Secondary Status: Chronic Qualifiers: Rheumatoid arthritis location: unspecified site Rheumatoid factor presence : unspecified presence Qualified Code(s): M06.9 - Rheumatoid arthritis, unspecified (4) HTN (hypertension) Priority: Secondary Status: Chronic Qualifiers: Hypertension type: essential hypertension Qualified Code(s): I10 - Essential (primary) hypertension (5) Anemia Priority: Secondary Status: Chronic Qualifiers: Anemia type: unspecified type Qualified Code(s): D64.9 - Anemia, unspecified (6) MGUS (monoclonal gammopathy of unknown significance) Priority: Secondary Status: Chronic - Discharge Medications Prescriptions: ALPRAZolam [Xanax 0.5 MG Tablet] 0.5 mg PO BID PRN #20 tablet PRN Reason: Anxiety amLODIPine [Norvasc] 10 mg PO DAILY #60 tablet Paroxetine HCl [Paxil] 10 mg PO DAILY #30 tablet Home Medications: Clopidogrel [Plavix] 75 mg PO QAM 03/05/15 [History] Folic Acid 0.4 mg PO BID 03/05/15 [History] Metoprolol XL (24 HR) Succ [Toprol XL] 50 mg PO BID 03/05/15 [History] Aspirin 81 mg PO DAILY 12/26/16 [History] Ramipril [Altace] 10 mg PO BID #60 capsule 03/24/17 [Rx] Methotrexate PFS 25 mg IJ QWEEK 04/02/17 [History] ALPRAZolam [Xanax 0.5 MG Tablet] 0.5 mg PO BID PRN #20 tablet 04/03/17 [Rx] Paroxetine HCl [Paxil] 10 mg PO DAILY #30 tablet 04/03/17 [Rx] amLODIPine [Norvasc] 10 mg PO DAILY #60 tablet 04/03/17 [Rx] Allergies/Adverse Reactions: 3 Allergy/AdvReac Type Severity Reaction Status Date / Time Cephalosporins Allergy Hives Verified 04/01/17 21:57 Penicillins Allergy Hives Verified 04/01/17 21:57 Propoxycaine Allergy Hives Verified 04/01/17 21:57 Sulfa (Sulfonamide Allergy Hives Verified 04/01/17 21:57 Antibiotics) acetaminophen [From [place]] AdvReac Nausea Verified 04/01/17 21:57 hydrocodone [From [place]] AdvReac Nausea Verified 04/01/17 21:57 Procedures/tests Complete & Pending: Procedures Performed prior 72 hours Category Date Time Status MR head/brain wo con [MR] Routine MRI 04/02/17 02:43 Completed Date of admission: 04/02/17 02:27 Primary care physician: Paul Wagner MD Consults: 04/02/17 02:40 Consult to Occupational Therapy [CONS] Routine Comment: Evaluate, develop and implement POC Reason for Consult: weakness, encephalopathy Consult to Physical Therapy [CONS] Routine Comment: Evaluate, develop and implement POC Reason for Consult: weakness, encephalopathy Consult to Quality Systems Specialist [CONS] Routine Reason for SW Consult: d/c planning 04/02/17 15:13 Consult to Neurology [CONS] Routine Consulting Provider: Neurology [facility] Reason for Consult: Acute encephalopathy, tremors, mood swings Call Completed: Yes Consult to Psychiatry [CONS] Routine Consulting Provider: Psychiatry [facility] Reason for Consult: Acute mood swings, confusion, hallucinations Call Completed: Yes Discharging clinician: Zuleika Rock Anticipated date of discharge: 04/03/17 - Patient Status Disposition: Home Health Service Condition: Fair Functional capacity at discharge: uses cane/walker Overall status at discharge: patient is progressing back to baseline - Discharge Instructions Instructions: Alprazolam (By mouth), Paroxetine (By mouth), Amlodipine (By mouth) Follow Up With: Paul Wagner MD [Primary Care Provider] - Additional Instructions: F/up with PCP in 1-2 weeks - Diet and Activity Activity: as per physical therapy Diet: low fat, low cholesterol, low salt diet Hospital course: Ms. Lo is a 82 year old female with the above medical problems, admitted with altered mental status. Patient was noted to have uncontrolled hypertension , and was thought to be having hypertensive emergency and hypertensive encephalopathy at the time of admission. CT head showed no acute abnormality/ bleed. She was restarted on her home medications along with Norvasc and when necessary IV medications and her blood pressure was gradually better controlled. No evidence of infection was noted. MRI brain was done which showed no acute abnormality. Patient's mental status gradually was returning back to baseline although she does have mild confusion at times. She was noted to have significant agitation , belligerence and hallucinations at home, which have currently resolved. She was evaluated by neurology and recommended no further workup. Patient was also evaluated by psychiatry, recommended to taper off and discontinue benzodiazepines that she uses as needed at home and to start her on antidepressant. The above plan has been discussed in detail with patient and her daughters and son at bedside, who are in agreement with her discharge plan. Physical and occupational therapy evaluation was completed and recommended home health services. Referral for this has been completed. - Time Spent with Patient Total time spent providing and/or coordinating discharge services: Greater than 30 minutes (45 min) - Constitutional Vitals: Temp Pulse Resp BP Pulse Ox 99.1 F 91 16 145/84 98 04/03/17 10:55 04/03/17 10:55 04/03/17 10:55 04/03/17 10:55 04/03/17 10:55 General appearance: Present: A&O X 2, answers questions appropriately - Respiratory Respiratory exam: Present: CTAB. Absent: accessory muscle use, rales, rhonchi, wheezes - Cardiovascular Cardiovascular exam: Present: RRR, +S1, +S2. Absent: diastolic murmur, gallop, rubs, systolic murmur
--- NOTE | 2017-04-03 14:16 | Physician Discharge Referral ---
Home Health/Hosp Referral Info Transfer to: Home Health Attending Provider: Zuleika Rock Provider in Charge Post Discharge: PCP - Diagnosis (1) Delirium Priority: Primary Status: Acute (2) Hypertensive emergency Priority: Primary Status: Acute (3) Rheumatoid arthritis Priority: Secondary Status: Chronic (4) HTN (hypertension) Priority: Secondary Status: Chronic (5) Anemia Priority: Secondary Status: Chronic (6) MGUS (monoclonal gammopathy of unknown significance) Priority: Secondary Status: Chronic - Respiratory Orders Smoking Cessation: Smoking cessation has been advised. For more information, call the [place] Tobacco Quit Line at 3-404-KHUN-NOW. - Diet/Nutrition Diet/Nutrition Orders: Cardiac - Activity Activity Orders: Ambulate, Walker - Services Needed Following services are medically necessary services: Nursing, Physical Therapy, Occupational Therapy - Transfer Medications Prescriptions: ALPRAZolam [Xanax 0.5 MG Tablet] 0.5 mg PO BID PRN #20 tablet PRN Reason: Anxiety amLODIPine [Norvasc] 10 mg PO DAILY #60 tablet Paroxetine HCl [Paxil] 10 mg PO DAILY #30 tablet Home Medications: Clopidogrel [Plavix] 75 mg PO QAM 03/05/15 [History] Folic Acid 0.4 mg PO BID 03/05/15 [History] Metoprolol XL (24 HR) Succ [Toprol XL] 50 mg PO BID 03/05/15 [History] Aspirin 81 mg PO DAILY 12/26/16 [History] Ramipril [Altace] 10 mg PO BID #60 capsule 03/24/17 [Rx] Methotrexate PFS 25 mg IJ QWEEK 04/02/17 [History] ALPRAZolam [Xanax 0.5 MG Tablet] 0.5 mg PO BID PRN #20 tablet 04/03/17 [Rx] Paroxetine HCl [Paxil] 10 mg PO DAILY #30 tablet 04/03/17 [Rx] amLODIPine [Norvasc] 10 mg PO DAILY #60 tablet 04/03/17 [Rx] Allergies/Adverse Reactions: 3 Allergy/AdvReac Type Severity Reaction Status Date / Time Cephalosporins Allergy Hives Verified 04/01/17 21:57 Penicillins Allergy Hives Verified 04/01/17 21:57 Propoxycaine Allergy Hives Verified 04/01/17 21:57 Sulfa (Sulfonamide Allergy Hives Verified 04/01/17 21:57 Antibiotics) acetaminophen [From [place]] AdvReac Nausea Verified 04/01/17 21:57 hydrocodone [From [place]] AdvReac Nausea Verified 04/01/17 21:57 Certification: Further, I certify that my clinical findings support that this patient is homebound (i.e. absences from home require considerable and taxing effort and are for medical reasons or jain services or infrequently or short duration when for other reasons) because: Homebound Reason: Patient requires assistance of a person or device to safely leave home, Altered mental status requiring supervision when leaving home Attestation: My signature below is to certify that this patient is under my care and that I, or nurse practitioner, or a physician's faculty research assistant working with me, has a face-to -face encounter with this patient.
--- NOTE | 2017-04-03 15:06 | Consult Note ---
Date of Encounter: 04/03/17 Time of Encounter: 12:00 Assessment & Recommendation (1) Depressive disorder, not elsewhere classified Current visit: Yes Status: Chronic Assessment & Recommendation: continue paxil 10 mg decrease and dc xanax. (2) Delirium Current visit: Yes Status: Acute History of Present Illness Requesting Physician: Zuleika Rock MD Reason for consult: acute mood swings, confusion, hallucinations. History of present illness: Ms. Lo is a 82 year old female was seen today , she had her 3 adult children in room and she agreed them to be there. As per her she was frightened what happened to her and why she was doing the stuff she did as she has never done that before. Patient has been detoriating for last few months as per her family regarding her memory and things she used to do before. she lives by herself and has been driving , paying her bils and family is always there for her. she has had some meds changes and patient agreed had taken more xanax if needed , she gets Paxil and xanax from her PCP. she stated i am better now , no psychosis but feels sad as loosing control of herself and realizes future will be harder for her because of her age , states month of march not good as lost her 11 yrs ago in march, after loss of her sister few months ago has been not the same . At present she is alert and oriented, has good sense of humor and able to give history. They have discharge plan of taking her home and get home health and one of the children would be with her. A/P Delerium sec to medical condition and benzo. use. depression nos continue paxil 10 mg rec to decrease and dc xanax as increase confusion with benzo in elderly. Patient and family given education. her confusion and hallucination is not related to any psychiatric disorder. Thank you for consult. CC: Zuleika Rock MD Past Med Surg Social Fam HX - Past Medical History Medical history: COPD, hyperlipidemia, hypertension, peripheral artery disease, RA, TIA - Past Psychiatric History Psychiatric history: Reports: depression Family psychiatric history: No Family History of Suicide: Unknown - Past Surgical History Surgical History: carotid endarterectomy, cataract, cholecystectomy - Social History Smoking Status: Former smoker Smokeless Tobacco Status: No Alcohol use: none Drug use: none - Family History Mother Adopted: [place]: nia Family Member Ethnicity: Non- Living Status: Age at : 60 Hx Family Cardiac Disorders: Yes Hx Family Respiratory Disorders: No Hx Family Cancer: No Hx Family GI Disorders: No Hx Family Genitourinary Disorders: No Hx Family Endocrine Disorder: No Hx Family Musculoskeletal Disorders: No Hx Family Neuromuscular Disorders: No Hx Family Neurologic Disorders: Yes (cva) Hx Family HEENT Disorders: No Hx Family Autoimmune Disorders: No Hx Family Reproductive Disorders: No Hx Family Psychosocial Disorders: No Hx Family Medical Disorders: No Father Name: nia Age at : 60 Hx Family Cardiac Disorders: Yes Hx Family Medical Disorders: No Medications & Allergies Clopidogrel [Plavix] 75 mg PO QAM 03/05/15 [History] Folic Acid 0.4 mg PO BID 03/05/15 [History] Metoprolol XL (24 HR) Succ [Toprol XL] 50 mg PO BID 03/05/15 [History] Aspirin 81 mg PO DAILY 12/26/16 [History] Ramipril [Altace] 10 mg PO BID #60 capsule 03/24/17 [Rx] Methotrexate PFS 25 mg IJ QWEEK 04/02/17 [History] ALPRAZolam [Xanax 0.5 MG Tablet] 0.5 mg PO BID PRN #20 tablet 04/03/17 [Rx] Paroxetine HCl [Paxil] 10 mg PO DAILY #30 tablet 04/03/17 [Rx] amLODIPine [Norvasc] 10 mg PO DAILY #60 tablet 04/03/17 [Rx] 3 Allergy/AdvReac Type Severity Reaction Status Date / Time Cephalosporins Allergy Hives Verified 04/01/17 21:57 Penicillins Allergy Hives Verified 04/01/17 21:57 Propoxycaine Allergy Hives Verified 04/01/17 21:57 Sulfa (Sulfonamide Allergy Hives Verified 04/01/17 21:57 Antibiotics) acetaminophen [From [place]] AdvReac Nausea Verified 04/01/17 21:57 hydrocodone [From [place]] AdvReac Nausea Verified 04/01/17 21:57 Review of Systems Psychiatric: Reports: depression Mental Status Exam Patient orientation: Yes Person, Yes Time, Yes Place Level of alertness: Alert Patient appearance: Appropriate Behavior: cooperative, talkative Psychomotor activity: Normal Eye contact: Maintains Eye Contact Mood description: Euthymic/stable Affect description: congruent with mood Speech pattern: Coherent Speech volume: Normal Thought process: Intact Thought content: Yes Intact Attention span: Capable of Focused Attention Patient reliability: Reliable Historian Intelligence estimate: Average Judgment: Good Insight: Full Results - Vital Signs Vital signs: Temp Pulse Resp BP Pulse Ox 99.1 F 91 16 145/84 98 04/03/17 10:55 04/03/17 10:55 04/03/17 10:55 04/03/17 10:55 04/03/17 10:55 - Labs Labs: Laboratory Last Values WBC 8.5 K/mcL (4.3-11.1) 04/03/17 03:36 RBC 3.48 M/mcL (3.82-4.97) L 04/03/17 03:36 Hgb 10.6 g/dL (11.5-15.4) L 04/03/17 03:36 Hct 32.1 % (35.3-44.9) L 04/03/17 03:36 MCV 92.2 fL (83.0-100.0) 04/03/17 03:36 MCH 30.5 pg (28.0-33.3) 04/03/17 03:36 MCHC 33.0 g/dL (31.6-35.5) 04/03/17 03:36 RDW 14.4 % (11.5-14.5) 04/03/17 03:36 Plt Count 270 K/mcL (140-400) 04/03/17 03:36 MPV 9.6 fL (9.4-12.4) 04/03/17 03:36 Immature Gran % 0.5 % (0-4) 04/03/17 03:36 Seg Neutrophils % 68.9 % 04/03/17 03:36 Lymphocytes % 20.3 % 04/03/17 03:36 Monocytes % 7.3 % 04/03/17 03:36 Eosinophils % 2.6 % 04/03/17 03:36 Basophils % 0.4 % 04/03/17 03:36 Neutrophils # 5.9 K/mcL (1.6-8.9) 04/03/17 03:36 Lymphocytes # 1.7 K/mcL (0.6-4.6) 04/03/17 03:36 Monocytes # 0.6 K/mcL (0.0-1.3) 04/03/17 03:36 Eosinophils # 0.2 K/mcL (0.0-0.6) 04/03/17 03:36 Basophils # 0.0 K/mcL (0.0-0.2) 04/03/17 03:36 Immature Plt Fraction 1.9 % (1.1-6.1) 04/03/17 03:36 PT 12.5 Seconds (9.4-12.1) H 04/01/17 22:07 INR 1.2 04/01/17 22:07 APTT 31.1 Seconds (26.0-36.0) 04/01/17 22:07 VBG pH 7.39 pH Units (7.32-7.42) 04/01/17 22:07 VBG pCO2 52 mmHg (41-51) H 04/01/17 22:07 VBG pO2 52 mmHg (25-40) H 04/01/17 22:07 VBG HCO3 32 mEq/L (21-27) H 04/01/17 22:07 Sodium 137 mEq/L (136-145) 04/03/17 03:36 Potassium 3.6 mEq/L (3.5-4.5) 04/03/17 03:36 Chloride 102 mEq/L (98-109) 04/03/17 03:36 Carbon Dioxide 25 mEq/L (19-29) 04/03/17 03:36 BUN 8 mg/dL (7-20) 04/03/17 03:36 Creatinine 0.83 mg/dL (0.57-1.11) 04/03/17 03:36 Est GFR ( Amer) > 60 (> 60) 04/03/17 03:36 Est GFR (Non-Af Amer) > 60 (> 60) 04/03/17 03:36 BUN/Creatinine Ratio 10 (6-26) 04/03/17 03:36 Glucose 101 mg/dL (70-99) H 04/03/17 03:36 POC Glucose 166 (58-89) H 04/02/17 01:35 Calculated Osmolality 282 (280-300) 04/03/17 03:36 Calcium 9.6 mg/dL (8.6-10.8) 04/03/17 03:36 Phosphorus 2.7 mg/dL (2.3-4.7) 04/02/17 03:49 Magnesium 1.6 mg/dL (1.6-2.6) 04/02/17 03:49 Total Bilirubin 0.9 mg/dL (0.2-1.2) 04/03/17 03:36 Direct Bilirubin 0.2 mg/dL (0.0-0.5) 04/01/17 22:07 Indirect Bilirubin 0.4 mg/dL (0.0-1.2) 04/01/17 22:07 AST 21 Units/L (5-34) 04/03/17 03:36 ALT 15 Units/L (0-55) 04/03/17 03:36 Alkaline Phosphatase 59 Units/L (38-126) 04/03/17 03:36 Troponin I 0.01 ng/mL (0-0.03) 04/01/17 22:07 Serum Total Protein 7.0 g/dL (6.0-8.3) 04/03/17 03:36 Albumin 3.4 g/dL (3.5-5.0) L 04/03/17 03:36 Globulin 3.6 g/dL (2.4-3.5) H 04/03/17 03:36 Albumin/Globulin Ratio 0.9 (1.1-2.2) L 04/03/17 03:36 TSH 0.705 mcIU/mL (0.350-4.840) 04/01/17 22:07 Urine Color Yellow (Yellow) 04/01/17 23:30 Urine Clarity Clear (Clear) 04/01/17 23:30 Urine pH 6.5 pH Units (5.0-8.0) 04/01/17 23:30 Ur Specific [place] 1.010 (1.010-1.025) 04/01/17 23:30 Urine Protein Negative mg/dL (Neg-Trace) 04/01/17 23:30 Urine Glucose (UA) Normal mg/dL (Normal) 04/01/17 23:30 Urine Ketones Negative mg/dL (Negative) 04/01/17 23:30 Urine Blood Negative (Negative) 04/01/17 23:30 Urine Nitrite Negative (Negative) 04/01/17 23:30 Urine Bilirubin Negative (Negative) 04/01/17 23:30 Urine Urobilinogen Normal mg/dL (Normal) 04/01/17 23:30 Ur Leukocyte Esterase Trace (Negative) H 04/01/17 23:30 Urine Microscopic RBC 0-3 per hpf (0-3) 04/01/17 23:30 Urine Microscopic WBC 5-15 per hpf (0-3) H 04/01/17 23:30 Ur Squamous Epith Cells Many per lpf (None-Few) H 04/01/17 23:30 Urine Bacteria None Seen per hpf (None-Few) 04/01/17 23:30 Hyaline Casts None Seen per lpf (None-Few) 04/01/17 23:30 Ur Culture Indicated? YES (NO) A 04/01/17 23:30 Urine Opiates Screen Negative ng/mL (Btoldj=512) 04/01/17 23:30 Ur Barbiturates Screen Negative ng/mL (Zobncw=191) 04/01/17 23:30 Ur Phencyclidine Scrn Negative ng/mL (Cutoff=25) 04/01/17 23:30 Ur Amphetamines Screen Negative ng/mL (Jwhqdc=2311) 04/01/17 23:30 U Benzodiazepines Scrn Negative ng/mL (Kgkhfc=944) 04/01/17 23:30 Urine Cocaine Screen Negative ng/mL (Cutoff= 300) 04/01/17 23:30 U Marijuana (THC) Screen Negative ng/mL (Cutoff = 50) 04/01/17 23:30 Ethyl Alcohol < 10 mg/dL (0-10) 04/01/17 22:07 - Impressions Impressions Brain MRI 04/02/17 02:43 IMPRESSION: No evidence acute intracranial abnormality Mild ventriculomegaly felt to be secondary to central cerebral atrophy rather than normal-pressure hydrocephalus Mild chronic microvascular disease within the periventricular white matter 3.3 cm left arachnoid cyst within the left posterior aspect of the left frontal lobe near the convexity within the extra-axial space D/ / 04/02/2017 12:27:29 Lyndon Darling MD / colten Interpreting Provider: Lyndon Darling MD Consult Discharge Plan - Plan Instructions: Alprazolam (By mouth), Paroxetine (By mouth), Amlodipine (By mouth) Additional Instructions: F/up with PCP in 1-2 weeks Referrals: Paul Wagner MD [Primary Care Provider] - Prescriptions: ALPRAZolam [Xanax 0.5 MG Tablet] 0.5 mg PO BID PRN #20 tablet PRN Reason: Anxiety amLODIPine [Norvasc] 10 mg PO DAILY #60 tablet Paroxetine HCl [Paxil] 10 mg PO DAILY #30 tablet
[2017-04-04 10:06] LABS: Acinetobacter baumannii by PCR Not Detected (Not Detect); Candida albicans by PCR Not Detected (Not Detect); Candida glabrata by PCR Not Detected (Not Detect); Candida krusei by PCR Not Detected (Not Detect); Candida parapsilosis by PCR Not Detected (Not Detect); Candida tropicalis by PCR Not Detected (Not Detect); Enterococcus by PCR Not Detected (Not Detect); Escherichia coli by PCR Not Detected (Not Detect); Klebsiella oxytoca by PCR Not Detected (Not Detect); Klebsiella pneumoniae by PCR Not Detected (Not Detect); Pseudomonas aeruginosa by PCR Not Detected (Not Detect); Serratia marcescens by PCR Not Detected (Not Detect); Staphylococcus aureus by PCR Not Detected (Not Detect); Streptococcus agalactiae(B)PCR Not Detected (Not Detect); Streptococcus by PCR Not Detected (Not Detect); Streptococcus pneumoniae PCR Not Detected (Not Detect); Streptococcus pyogenes (A) PCR Not Detected (Not Detect); mecA Methicillin-Resist Gene Not Detected (Not Detect)
--- NOTE | 2017-04-04 10:44 | Event Note ---
Date of Encounter: 04/04/17 Time of Encounter: 10:43 Blood cultures 1/2 reported growing GPC, likely contaminant; no further testing indicated.
--- NOTE | 2017-04-05 08:36 | Electrocardiograph Report ---
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
== END 2017-04-03 15:30 | disposition home health service (06) | DRG 305 ==
LOC: 3BNU 21:46 → EMEROO 21:46 → 3BNU 04-02 01:11 → SUATTDRO 04-02 02:27
PROVIDERS: ADMIT Internal Medicine; ATTEND Internal Medicine

== ENCOUNTER 2018-10-04 15:17 | Inpatient (IN) ==
--- NOTE | 2018-10-04 15:46 | Emergency Department Note ---
Disposition Clinical Impression: Generalized weakness, Multiple falls Disposition: Admitted As Inpatient Condition: Fair Referrals: Avelina Morejon, BLEND TECHNICIAN [Primary Care Provider] - Forms: ED Satisfaction Letter Time of Disposition: 19:30 General Adult HPI - General Chief complaint: ED Fall Stated complaint: general illness Time Seen by Provider: 10/04/18 15:20 Source: EMS Limitations: no limitations Nursing Notes Reviewed: Yes Vital Signs Reviewed: Yes - History of Present Illness HPI Narrative: Ms. Lo is an 83-year old female who presented to the ED for generalized weakness and multiple falls over the last several days. She states that she was instructed by her home health nurse to come to the ED for evaluation. She currently resides at home with one of her five children, which stay with her on an alternating basis. She denies any trauma or injury associated with her falls, and states that they only occur while trying to get up from the chair or bed. She reports feeling generally poor since yesterday, with fevers/chills, a nonproductive cough, and nausea. She reports good oral intake in general, and denies any other acute complaints or concerns at this time. Her son, who is present at the bedside, reports that his mother has been having intermittent generalized weakness over the last several weeks, with dizziness and lightheadedness on occasion when rising from a seated position. Pain Scale: 5 - Related Data Home Medications Medication Instructions Recorded Confirmed Clopidogrel [Plavix] 75 mg PO QAM 03/05/15 11/26/17 Metoprolol XL (24 HR) Succ [Toprol 50 mg PO BID 03/05/15 11/26/17 XL] ALPRAZolam [Xanax 0.5 MG Tablet] 0.25 mg PO BID PRN 11/26/17 11/26/17 Previous Rx's Medication Instructions Recorded Ramipril [Altace] 10 mg PO BID #60 capsule 03/24/17 Paroxetine HCl [Paxil] 10 mg PO DAILY #30 tablet 04/03/17 amLODIPine [Norvasc] 10 mg PO DAILY #60 tablet 04/03/17 Allergies Allergy/AdvReac Type Severity Reaction Status Date / Time Cephalosporins Allergy Hives Verified 11/26/17 11:46 Penicillins Allergy Hives Verified 11/26/17 11:46 Propoxycaine Allergy Hives Verified 11/26/17 11:46 Sulfa (Sulfonamide Allergy Hives Verified 11/26/17 11:46 Antibiotics) acetaminophen [From [place]] AdvReac Nausea Verified 11/26/17 11:46 hydrocodone [From [place]] AdvReac Nausea Verified 11/26/17 11:46 All systems ED: reviewed and negative except as stated. Constitutional: Reports: fever, chills, weakness Cardiovascular: Denies: chest pain, palpitations, dyspnea on exertion, edema, syncope Respiratory: Reports: cough. Denies: dyspnea, wheezes, sputum production Gastrointestinal: Reports: nausea. Denies: abdominal pain, vomiting, diarrhea, constipation, hematemesis, melena, hematochezia Genitourinary: Denies: urgency, dysuria, frequency Musculoskeletal: Reports: back pain, arthralgia Past Medical History - Past Medical History Medical history: Reports: COPD, hyperlipidemia, hypertension, peripheral artery disease, RA, TIA Surgical history: Reports: carotid endarterectomy, cataract, cholecystectomy Psychiatric history: Reports: depression - Social History Smoking Status: Former smoker Smokeless Tobacco Status: No Alcohol use: Reports: none Drug use: Reports: none Physical Exam - General Limitations: no limitations General appearance: alert, in no apparent distress - Head Head exam: atraumatic, normocephalic, normal inspection - Neck Neck exam: Present: normal inspection, full ROM, trachea midline - Respiratory Respiratory exam: Present: normal lung sounds bilaterally - Cardiovascular Cardiovascular exam: Present: regular rate, normal rhythm, normal heart sounds, +S1, +S2 - Abdominal Exam Abdominal exam: Present: soft, Non-Tender. Absent: tenderness, distention, guarding, rebound, rigidity - Extremities Exam Extremities exam: Present: normal inspection, full ROM. Absent: tenderness, pedal edema - Back Exam Back exam: Present: normal inspection, full ROM. Absent: tenderness - Neurological Exam Neurological exam: Present: alert, oriented X3 - Psychiatric Psychiatric exam: Present: normal affect, normal mood - Skin Skin exam: Present: warm, dry, intact, normal color, other (minor scattered ecchymoses) Course Course Narrative: Patient seen and evaluated at the bedside. Vital signs reviewed. At this time, the patient does not appear to be in any acute distress. She reports pain in her head, back, and left knee, which is consistent with her normal aches and pains. She denies any known sick contacts, though she does report a large family gathering this past weekend, at which there were numerous family members present. We will obtain CT imaging of the head and cervical spine, as well as a chest xray, urinalysis, and basic laboratory studies. Disposition pending. Vital Signs Temperature 100.7 F H 10/04/18 15:22 Pulse Rate 89 10/04/18 15:22 Respiratory Rate 16 10/04/18 15:22 Blood Pressure 157/63 10/04/18 15:22 O2 Sat by Pulse Oximetry 98 10/04/18 15:22 Temperature 100.7 F H 10/04/18 15:22 Pulse Rate 93 10/04/18 18:33 Respiratory Rate 20 10/04/18 18:33 Blood Pressure 172/62 10/04/18 18:33 O2 Sat by Pulse Oximetry 100 10/04/18 18:33 Oxygen Delivery Oxygen Delivery Room Air Medical Decision Making - MDM Narrative Medical decision making narrative: Results of negative workup were discussed in detail with multiple family members present at the bedside. Risks and benefits of inpatient workup vs. discharge home and outpatient workup were discussed. Patient was ambulated in the emergency department without difficulty, and she stated that she did not feel weaker than usual. Vital signs remained stable within the emergency department. Patient and family did decide on inpatient admission for further workup, and the case was discussed with the admitting hospitalist, Dr. Romero, who agreed to accept the patient. - Medical Records Medical records reviewed: Yes I reviewed the patient's medical records. - Lab Data Lab results reviewed: Yes I reviewed the patient's lab results. Result diagrams: 10/04/18 16:04 10/04/18 16:04 Lab Results 10/04/18 10/04/18 10/04/18 Range/Units 16:04 16:04 16:04 WBC 6.8 (4.3-11.1) K/mcL RBC 3.65 L (3.82-4.97) M/mcL Hgb 10.7 L (11.5-15.4) g/dL Hct 32.0 L (35.3-44.9) % MCV 87.7 (83.0-100.0) fL MCH 29.3 (28.0-33.3) pg MCHC 33.4 (31.6-35.5) g/dL RDW 13.3 (11.5-14.5) % Plt Count 222 (140-400) K/mcL MPV 9.4 (9.4-12.4) fL Immature Gran % 0.3 (0-4) % Seg Neutrophils % 79.0 % Lymphocytes % 10.6 % Monocytes % 7.9 % Eosinophils % 1.9 % Basophils % 0.3 % Neutrophils # 5.4 (1.6-8.9) K/mcL Lymphocytes # 0.7 (0.6-4.6) K/mcL Monocytes # 0.5 (0.0-1.3) K/mcL Eosinophils # 0.1 (0.0-0.6) K/mcL Basophils # 0.0 (0.0-0.2) K/mcL PT 13.8 H (9.4-12.1) Seconds INR 1.2 Sodium 134 L (136-145) mEq/L Potassium 4.0 (3.5-5.1) mEq/L Chloride 100 (98-107) mEq/L Carbon Dioxide 27 (23-29) mEq/L BUN 13 (8-23) mg/dL Creatinine 1.03 (0.60-1.20) mg/dL Est GFR ( Amer) > 60 (> 60) Est GFR (Non-Af Amer) 51 L (> 60) BUN/Creatinine Ratio 13 (6-26) Glucose 115 H (70-105) mg/dL Calculated Osmolality 279 L (280-300) Calcium 9.1 (8.6-10.3) mg/dL Urine Color (Yellow) Urine Clarity (Clear) Urine pH (5.0-8.0) pH Units Ur Specific [place] (1.010-1.025) Urine Protein (Neg-Trace) mg/dL Urine Glucose (UA) (Normal) mg/dL Urine Ketones (Negative) mg/dL Urine Blood (Negative) Urine Nitrite (Negative) Urine Bilirubin (Negative) Urine Urobilinogen (Normal) mg/dL Ur Leukocyte Esterase (Negative) Ur Culture Indicated? (NO) 10/04/18 Range/Units 17:39 WBC (4.3-11.1) K/mcL RBC (3.82-4.97) M/mcL Hgb (11.5-15.4) g/dL Hct (35.3-44.9) % MCV (83.0-100.0) fL MCH (28.0-33.3) pg MCHC (31.6-35.5) g/dL RDW (11.5-14.5) % Plt Count (140-400) K/mcL MPV (9.4-12.4) fL Immature Gran % (0-4) % Seg Neutrophils % % Lymphocytes % % Monocytes % % Eosinophils % % Basophils % % Neutrophils # (1.6-8.9) K/mcL Lymphocytes # (0.6-4.6) K/mcL Monocytes # (0.0-1.3) K/mcL Eosinophils # (0.0-0.6) K/mcL Basophils # (0.0-0.2) K/mcL PT (9.4-12.1) Seconds INR Sodium (136-145) mEq/L Potassium (3.5-5.1) mEq/L Chloride (98-107) mEq/L Carbon Dioxide (23-29) mEq/L BUN (8-23) mg/dL Creatinine (0.60-1.20) mg/dL Est GFR ( Amer) (> 60) Est GFR (Non-Af Amer) (> 60) BUN/Creatinine Ratio (6-26) Glucose (70-105) mg/dL Calculated Osmolality (280-300) Calcium (8.6-10.3) mg/dL Urine Color Yellow (Yellow) Urine Clarity Clear (Clear) Urine pH 6.5 (5.0-8.0) pH Units Ur Specific [place] 1.011 (1.010-1.025) Urine Protein Negative (Neg-Trace) mg/dL Urine Glucose (UA) Normal (Normal) mg/dL Urine Ketones Negative (Negative) mg/dL Urine Blood Negative (Negative) Urine Nitrite Negative (Negative) Urine Bilirubin Negative (Negative) Urine Urobilinogen Normal (Normal) mg/dL Ur Leukocyte Esterase Negative (Negative) Ur Culture Indicated? NO (NO) - Radiology Data Radiology results reviewed: Yes I reviewed the patient's radiology results. - EKG Data EKG #1 EKG results narrative: HR 93bpm. Normal sinus rhythm with no ST or T wave abnormalities. No significant changes from prior EKG dated 04/01/2017. Attestation Statement - Attestation Attestation: I, Arsenio Ross, examined this patient and my medical decision-making was reviewed with the PHYSIATRIST/PA/Advanced Practice Nurse/Resident Physician. I agree with the documented findings, disposition and treatment plan as described except to the extent set forth below. 83-year-old female presents emergency Department with concerns of multiple falls and weakness increasing over the past 4-5 days. Patient has a history of weakness over the past month however the past 4-5 days she has been unable to ambulate without falling. Family states that she is fallen 4-5 times over the past 4 days. They state that she became lightheaded with standing today. Patient denied fever, chills, nausea, vomiting, diarrhea. Laboratory evaluation did not show significant abnormality. Family and patient did not feel comfortable returning home and she will be admitted for further evaluation of her weakness.
[2018-10-04 16:21] LABS: Basophils % 0.3 %; Eosinophils # 0.1 K/mcL (0.0-0.6); Eosinophils % 1.9 %; Hemoglobin 10.7 g/dL (11.5-15.4); Immature Granulocytes % 0.3 % (0-4); Lymphocytes # 0.7 K/mcL (0.6-4.6); Lymphocytes % 10.6 %; Mean Corpuscular HGB Conc 33.4 g/dL (31.6-35.5); Mean Corpuscular Hemoglobin 29.3 pg (28.0-33.3); Mean Corpuscular Volume 87.7 fL (83.0-100.0); Mean Platelet Volume 9.4 fL (9.4-12.4); Monocytes # 0.5 K/mcL (0.0-1.3); Monocytes % 7.9 %; Neutrophils # 5.4 K/mcL (1.6-8.9); Platelet Count 222 K/mcL (140-400); Red Blood Count 3.65 M/mcL (3.82-4.97); Red Cell Distribution Width 13.3 % (11.5-14.5)
[2018-10-04 16:30] LABS: INR 1.2; Prothrombin Time 13.8 Seconds (9.4-12.1)
[2018-10-04 16:39] LABS: BUN/Creatinine Ratio 13 (6-26); Blood Urea Nitrogen 13 mg/dL (8-23); Calcium 9.1 mg/dL (8.6-10.3); Carbon Dioxide 27 mEq/L (23-29); Chloride 100 mEq/L (98-107); Glucose 115 mg/dL (70-105); Osmolality,Calculated 279 (280-300); Sodium 134 mEq/L (136-145); eGFR For Non-African Americans 51 (> 60)
[2018-10-04 17:50] LABS: Bilirubin,Urine Negative (Negative); Blood,Urine Negative (Negative); Clarity,Urine Clear (Clear); Color,Urine Yellow (Yellow); Glucose,Urine (UA) Normal (Normal); Ketones,Urine Negative (Negative); Leukocyte Esterase,Urine Negative (Negative); Nitrite,Urine Negative (Negative); PH,Urine 6.5 pH Units (5.0-8.0); Protein,Urine Negative (Neg-Trace); Specific Gravity,Urine 1.011 (1.010-1.025); Urobilinogen,Urine Normal (Normal)
[2018-10-04] MEDS ORDERED: Naloxone 0.4 MG/ML INJ IVP PRN (20:17)
[2018-10-04] MEDS ORDERED: Acetaminophen 325 MG TABLET PO ONE (23:49)
[2018-10-05] MEDS: ALPRAZolam 0.5 MG TABLET PO SCH ×2 (00:05→21:38)
[2018-10-05] MEDS: amLODIPine 5 MG TABLET PO SCH ×2 (00:05→21:38)
[2018-10-05 02:16] LABS: Adenovirus Not Detected (Not Detect); Coronavirus 229E Not Detected (Not Detect); Coronavirus HKU1 Not Detected (Not Detect); Coronavirus NL63 Not Detected (Not Detect); Coronavirus OC43 Not Detected (Not Detect); Human Metapneumovirus Not Detected (Not Detect); Human Rhinovirus/Enterovirus Not Detected (Not Detect)
[2018-10-05 02:18] LABS: Bordetella Pertussis Not Detected (Not Detect); Chlamydophila pneumoniae Not Detected (Not Detect); Influenza A Subtype 2009 H1 Not Detected (Not Detect); Influenza A Untypeable Not Detected (Not Detect); Influenza B Not Detected (Not Detect); Mycoplasma pneumoniae Not Detected (Not Detect); Parainfluenza Virus 1 Not Detected (Not Detect); Parainfluenza Virus 2 Not Detected (Not Detect); Parainfluenza Virus 3 Not Detected (Not Detect); Parainfluenza Virus 4 Not Detected (Not Detect); Respiratory Syncytial Virus Not Detected (Not Detect)
--- NOTE | 2018-10-05 08:59 | Internal Med History&Physical ---
Date of Encounter: 10/05/18 Time of Encounter: 02:00 Internal Medicine - H&P: HPI Chief complaint: Fall History of present illness: Ms. Lo is a 83 year old female with past medical history of MGUS, prior TIA, hypertension, COPD and rheumatoid arthritis who was brought into the ED by her family after a fall. Patient's daughter who was at bedside reports that for the past week and a half patient has had progressive weakness and recurrent falls. Patient has been undergoing home health and occupational and physical therapy at home for the past week or so. This in light of a recurrence of a flare in her rheumatoid arthritis involving her left shoulder and left knee. However patient was noted to have a fever on Wednesday night in the setting of a new onset dry cough. At home her temperature was taken and found to be 101.8. On arrival patient was found to have a temperature of 102.8 with a normal white blood cell count. Patient denies any chills, upper respiratory tract symptoms, nausea, vomiting, chest pain, shortness of breath, abdominal pain, dysuria or diarrhea. Imaging of the chest, spine and head were unremarkable. Past Med Surg Social Fam HX - Past Medical History Medical history: COPD, hyperlipidemia, hypertension, peripheral artery disease, RA, TIA Psychiatric history: depression - Past Surgical History Surgical History: carotid endarterectomy, cataract, cholecystectomy Additional surgical history: renal stent - Social History Smoking Status: Former smoker Smokeless Tobacco Status: No Alcohol use: none Drug use: none - Family History Mother Adopted: No Family Member Ethnicity: Non- Living Status: Hx Family Cardiac Disorders: Yes Hx Family Respiratory Disorders: No Hx Family Cancer: No Hx Family GI Disorders: No Hx Family Endocrine Disorder: No Hx Family Neuromuscular Disorders: No Hx Family Neurologic Disorders: Yes (cva) Hx Family HEENT Disorders: No Hx Family Autoimmune Disorders: No Father Hx Family Cardiac Disorders: Yes Internal Medicine - H&P: Meds Clopidogrel [Plavix] 75 mg PO QAM 03/05/15 [History] Metoprolol XL (24 HR) Succ [Toprol XL] 50 mg PO BID 03/05/15 [History] Paroxetine HCl [Paxil] 10 mg PO DAILY #30 tablet 04/03/17 [Rx] ALPRAZolam [Xanax 0.5 MG Tablet] 0.25 mg PO HS 11/26/17 [History] amLODIPine [Norvasc] 10 mg PO HS 10/04/18 [History] BuPROPion [Wellbutrin] 75 mg PO DAILY 10/05/18 [History] Ramipril [Altace] 10 mg PO DAILY 10/05/18 [History] Allergy/AdvReac Type Severity Reaction Status Date / Time Cephalosporins Allergy Hives Verified 11/26/17 11:46 Penicillins Allergy Hives Verified 11/26/17 11:46 Propoxycaine Allergy Hives Verified 11/26/17 11:46 Sulfa (Sulfonamide Allergy Hives Verified 11/26/17 11:46 Antibiotics) acetaminophen [From [place]] AdvReac Nausea Verified 11/26/17 11:46 hydrocodone [From [place]] AdvReac Nausea Verified 11/26/17 11:46 All Systems PM: A 10-system review of systems was performed and is negative for pertinent findings except as documented above in the HPI. - Constitutional Constitutional: no chills, no fever(s), no night sweats - EENT Eyes: no change in vision, no discharge, no pain, no photophobia Ears: no ear discharge, no ear pain, no tinnitus Nose, mouth and throat: no dysphagia, no nasal discharge, no neck pain, no sore throat - Cardiovascular Cardiovascular ROS IM: no chest pain, no diaphoresis, no dyspnea, no lightheadedness, no palpitations, no syncope - Respiratory Respiratory: no cough, no dyspnea, no wheezing, no excessive phlegm production - Gastrointestinal Gastrointestinal: no abdominal pain, no diarrhea, no hematemesis, no hematochezia, no melena, no nausea, no vomiting - Genitourinary Genitourinary: no change in urinary stream, no dysuria, no flank pain, no hematuria - Musculoskeletal Musculoskeletal ROS IM: no numbness, no tingling - Integumentary Integumentary IM: no rash, no unusual bruising - Neurological Neurological ROS: no confusion, no convulsions, no focal weakness, no numbness, no tingling, no tremor(s) - Hematologic/Lymphatic Hematologic/Lymphatic: no easy bruising - Constitutional Vitals: Temp Pulse Resp BP Pulse Ox 98.9 F 85 17 145/66 92 10/05/18 07:09 10/05/18 07:09 10/05/18 07:09 10/05/18 08:53 10/05/18 07:09 Exam: General: Alert and oriented 3 Skin:Normal color, no rash, no lesions. HEENT:EOM, pupils equal, round and reactive. Cardiovascular:Normal S1 & S2, no rubs, murmurs or gallops. No JVD. Pulse regular. Lungs:Normal breath sounds, no wheezes or crackles. Abdomen:Soft, non-tender, no rigidity. Extremities:No deformity, no edema or tenderness, no joint swelling or clubbing. Neurological:Normal cognition and motor skills. Muscle strength 5 out of 5 in the upper extremities and lower extremities. Pulses:Carotid and radial pulses normal +2. Rest of the physical exam is non contributory Internal Med - H&P Results - Labs CBC & Chem 7: 10/04/18 16:04 10/04/18 16:04 Labs: Short CBC 10/04/18 Range/Units 16:04 WBC 6.8 (4.3-11.1) K/mcL Hgb 10.7 L (11.5-15.4) g/dL Hct 32.0 L (35.3-44.9) % Plt Count 222 (140-400) K/mcL Neutrophils # 5.4 (1.6-8.9) K/mcL BMP 10/04/18 16:04 Sodium 134 L Potassium 4.0 Chloride 100 Carbon Dioxide 27 BUN 13 Creatinine 1.03 Glucose 115 H Calcium 9.1 Urine 10/04/18 Range/Units 17:39 Urine Color Yellow (Yellow) Urine Clarity Clear (Clear) Urine pH 6.5 (5.0-8.0) pH Units Ur Specific [place] 1.011 (1.010-1.025) Urine Protein Negative (Neg-Trace) mg/dL Urine Glucose (UA) Normal (Normal) mg/dL - Impressions ITS Impressions Cervical Spine CT 10/04/18 15:34 IMPRESSION: No acute abnormality of the cervical spine. Multilevel degenerative disc disease with multilevel facet arthropathy. D/ / Gianfranco Cochran MD / Gianfranco Cochran MD Interpreting Provider: Gianfranco Cochran MD Chest X-Ray 10/04/18 15:34 IMPRESSION: No acute cardiopulmonary disease. D/ / Gianfranco Cochran MD / Gianfranco Cocharn MD Interpreting Provider: Gianfranco Cochran MD Head CT 10/04/18 15:34 IMPRESSION: No acute intracranial abnormality. No change from March 2017. Stable extra-axial CSF collection adjacent to the left parietal cortex near the convexity may represent arachnoid cyst or chronic hygroma-less likely old cortical infarct. D/ / David Almaguer MD / David Almaguer MD Interpreting Provider: David Almaguer MD - Assessment and Plan (1) Generalized weakness Current Visit: Yes Status: Acute Assessment and plan: Patient reports generalized weakness with recurrent falls that is gotten progressively worse. Noted to have a fever in the setting of dry cough. Chest x-ray was unremarkable. UA unremarkable. Possible infectious etiology as cause for her weakness versus secondary to rheumatoid arthritis flare involving left knee. -We will obtain respiratory infectious panel -Consider short course of prednisone. -PT OT consult (2) Multiple falls Current Visit: Yes Status: Acute Assessment and plan: See above (3) Anemia Current Visit: No Status: Chronic Assessment and plan: Normocytic anemia with hemoglobin of 10.7 which appears to be near patient's baseline. We will monitor. Qualifiers: Anemia type: unspecified type Qualified Code(s): D64.9 - Anemia, unspecified (4) HTN (hypertension) Current Visit: No Status: Chronic Assessment and plan: Blood pressure stable. Resume home antihypertensive vacations. Qualifiers: Hypertension type: essential hypertension Qualified Code(s): I10 - Essential (primary) hypertension (5) DVT prophylaxis Current Visit: No Status: Acute Assessment and plan: Subcutaneous heparin - Time Spent With Patient Total time spent is greater than 50% in coordination of care (as documented) at patient's floor/unit and/or counseling patient:
[2018-10-05] MEDS: *HR* Heparin 5,000 UNIT/ML VIAL SQ SCH ×3 (12:12→21:39)
[2018-10-05] MEDS: Acetaminophen 325 MG TABLET PO PRN (16:18)
--- NOTE | 2018-10-05 17:28 | Event Note ---
Date of Encounter: 10/05/18 Time of Encounter: 14:00 Patient was seen and examined earlier in the morning per hospitalist services. Currently denies any pain or discomfort. She has been spiking fevers throughout the day. She was influenza positive started on Tamiflu I did discuss treatment plan with the patient and her family were at that site. They are requesting that patient receive carotid duplex as well as rheumatology consult-patient does have an outpatient appointment with rheumatology next week advised family that I would discuss case with rheumatology
[2018-10-06] MEDS: Acetaminophen 325 MG TABLET PO PRN ×2 (04:08→16:07)
[2018-10-06] MEDS: *HR* Heparin 5,000 UNIT/ML VIAL SQ SCH ×3 (06:14→21:59)
[2018-10-06 06:42] LABS: BUN/Creatinine Ratio 9 (6-26); Blood Urea Nitrogen 9 mg/dL (8-23); Calcium 8.8 mg/dL (8.6-10.3); Carbon Dioxide 23 mEq/L (23-29); Chloride 99 mEq/L (98-107); Glucose 88 mg/dL (70-105); Osmolality,Calculated 276 (280-300); Potassium 3.8 mEq/L (3.5-5.1); Sodium 134 mEq/L (136-145); eGFR For Non-African Americans 55 (> 60)
[2018-10-06 08:13] LABS: Basophils % 0.2 %; Eosinophils # 0.2 K/mcL (0.0-0.6); Eosinophils % 4.3 %; Hemoglobin 9.8 g/dL (11.5-15.4); Immature Granulocytes % 0.2 % (0-4); Lymphocytes # 1.2 K/mcL (0.6-4.6); Mean Corpuscular HGB Conc 32.7 g/dL (31.6-35.5); Mean Corpuscular Volume 88.8 fL (83.0-100.0); Mean Platelet Volume 9.6 fL (9.4-12.4); Monocytes # 0.5 K/mcL (0.0-1.3); Monocytes % 11.5 %; Neutrophils # 2.7 K/mcL (1.6-8.9); Platelet Count 177 K/mcL (140-400); Red Blood Count 3.38 M/mcL (3.82-4.97); Red Cell Distribution Width 13.2 % (11.5-14.5); Segmented Neutrophils % 57.8 %
[2018-10-06 08:37] LABS: Platelet Estimate Normal (Normal)
[2018-10-06] MEDS: Metoprolol XL (24 HR) Succ 25 MG TAB.ER.24H PO SCH (09:39)
--- NOTE | 2018-10-06 14:51 | Internal Med Progress Note ---
Hospitalist Progress Note - Encounter Date of Encounter: 10/06/18 Time of Encounter: 14:51 - Subjective Interval History: Patient was seen and examined at bedside currently denies any pain or discomfort I did discuss treatment plan with the patient including the patient will be going to rehabilitation awaiting placement at this time. Patient verbalized understanding. - Exam Vitals: Temp Pulse Resp BP Pulse Ox 99.3 F 81 18 96/59 91 10/06/18 10:50 10/06/18 10:50 10/06/18 10:50 10/06/18 10:50 10/06/18 10:50 Exam: General: Alert and oriented 3 Skin:Normal color, no rash, no lesions. HEENT:EOM, pupils equal, round and reactive. Cardiovascular:Normal S1 & S2, no rubs, murmurs or gallops. No JVD. Pulse regular. Lungs:Normal breath sounds, no wheezes or crackles. Abdomen:Soft, non-tender, no rigidity. Extremities:No deformity, no edema or tenderness, no joint swelling or clubbing. Neurological:Normal cognition and motor skills. Muscle strength 5 out of 5 in t he upper extremities and lower extremities. Pulses:Carotid and radial pulses normal +2. Rest of the physical exam is non contributory - Assessment and Plan (1) Generalized weakness Current Visit: Yes Status: Acute Assessment and Plan: Patient reports generalized weakness with recurrent falls that is gotten progressively worse. Noted to have a fever in the setting of dry cough. Chest x-ray was unremarkable. UA unremarkable. Possible infectious etiology as cause for her weakness versus secondary to rheumatoid arthritis flare involving left knee. -We will obtain respiratory infectious panel -Patient does have appointment with rheumatology next week-may consider short dose of prednisone -PT OT recommending inpatient rehabilitation social media project manager has been consulted for placement (2) DVT prophylaxis Current Visit: No Status: Acute Assessment and Plan: Subcutaneous heparin (3) HTN (hypertension) Current Visit: No Status: Chronic Assessment and Plan: Blood pressure stable. . Continue with present medications (4) Anemia Current Visit: No Status: Chronic Assessment and Plan: Normocytic anemia with hemoglobin of 10.1 which appears to be near patient's baseline. We will monitor. (5) Multiple falls Current Visit: Yes Status: Acute Assessment and Plan: See above - Time Spent with Patient Total time spent is greater than 50% in coordination of care (as documented) at patient's floor/unit and/or counseling patient: Internal Medicine: Result - Labs CBC & Chem 7: 10/06/18 08:01 10/06/18 04:12 Labs: Short CBC 10/06/18 Range/Units 08:01 WBC 4.7 (4.3-11.1) K/mcL Hgb 9.8 L (11.5-15.4) g/dL Hct 30.0 L (35.3-44.9) % Plt Count 177 (140-400) K/mcL Neutrophils # 2.7 (1.6-8.9) K/mcL BMP 10/06/18 04:12 Sodium 134 L Potassium 3.8 Chloride 99 Carbon Dioxide 23 BUN 9 Creatinine 0.97 Glucose 88 Calcium 8.8 - ABG Interpretation ABG results: PT/INR, D-dimer PT 13.8 Seconds (9.4-12.1) H 10/04/18 16:04 Consult Discharge Plan - Plan Referrals: Avelina Morejon, [employer] [facility] [Primary Care Provider] - 10/11/18 3:00 pm () (3) HTN (hypertension) Qualifiers: Hypertension type: essential hypertension Qualified Code(s): I10 - Essential (primary) hypertension (4) Anemia Qualifiers: Anemia type: unspecified type Qualified Code(s): D64.9 - Anemia, unspecified
[2018-10-06] MEDS: ALPRAZolam 0.5 MG TABLET PO SCH (21:58)
[2018-10-06] MEDS: amLODIPine 5 MG TABLET PO SCH (21:59)
[2018-10-06] MEDS: Oseltamivir Phosphate 30 MG CAPSULE PO SCH (21:59)
[2018-10-07 01:38] LABS: Basophils % 0.2 %; Eosinophils # 0.3 K/mcL (0.0-0.6); Eosinophils % 7.5 %; Hemoglobin 10.3 g/dL (11.5-15.4); Immature Granulocytes % 0.2 % (0-4); Lymphocytes # 1.6 K/mcL (0.6-4.6); Lymphocytes % 38.4 %; Mean Corpuscular HGB Conc 32.2 g/dL (31.6-35.5); Mean Corpuscular Hemoglobin 28.8 pg (28.0-33.3); Mean Corpuscular Volume 89.4 fL (83.0-100.0); Mean Platelet Volume 9.4 fL (9.4-12.4); Monocytes # 0.5 K/mcL (0.0-1.3); Monocytes % 11.3 %; Neutrophils # 1.8 K/mcL (1.6-8.9); Platelet Count 214 K/mcL (140-400); Red Blood Count 3.58 M/mcL (3.82-4.97); Red Cell Distribution Width 13.1 % (11.5-14.5); Segmented Neutrophils % 42.4 %
[2018-10-07 01:57] LABS: Calcium 8.8 mg/dL (8.6-10.3); Potassium 3.8 mEq/L (3.5-5.1)
[2018-10-07] MEDS: *HR* Heparin 5,000 UNIT/ML VIAL SQ SCH (06:14)
[2018-10-07] MEDS: Metoprolol XL (24 HR) Succ 25 MG TAB.ER.24H PO SCH (10:34)
[2018-10-07] MEDS: Oseltamivir Phosphate 30 MG CAPSULE PO SCH (10:34)
[2018-10-07 11:31] VITALS: BP 102/59
--- NOTE | 2018-10-07 11:43 | Electrocardiograph Report ---
[place] [id number] Test Date: 2018-10-04 Pat Name: Amie Lo Department: [id number] Room: 3B63 Gender: F Extension Edger: : 1935 Requested By: Caridad Ray Order Number: [id number] Reading MD: Sridhar Pedersen Measurements Intervals [place] Rate: 93 P: 37 MI: 171 QRS: 21 QRSD: 87 T: 44 QT: 335 QTc: 417 Interpretive Statements Sinus rhythm Electronically Signed On 10-07-2018 11:42:02 EDT by Sridhar Pedersen
--- NOTE | 2018-10-07 12:02 | Internal Med Progress Note ---
Hospitalist Progress Note - Encounter Date of Encounter: 10/07/18 Time of Encounter: 11:58 - Subjective Interval History: Patient seen and examined at bedside patient states she feels much better has more energy as well as tolerating meals. Currently we are waiting acceptance to [facility] - Exam Vitals: Temp Pulse Resp BP Pulse Ox 98.4 F 80 14 102/59 93 10/07/18 11:30 10/07/18 11:30 10/07/18 11:30 10/07/18 11:30 10/07/18 11:30 Exam: General: Alert and oriented 3 Skin:Normal color, no rash, no lesions. HEENT:EOM, pupils equal, round and reactive. Cardiovascular:Normal S1 & S2, no rubs, murmurs or gallops. No JVD. Pulse regular. Lungs:Normal breath sounds, no wheezes or crackles. Abdomen:Soft, non-tender, no rigidity. Extremities:No deformity, no edema or tenderness, no joint swelling or clubbing. Neurological:Normal cognition and motor skills. Muscle strength 5 out of 5 in the upper extremities and lower extremities. Pulses:Carotid and radial pulses normal +2. Rest of the physical exam is non contributory - Assessment and Plan (1) Generalized weakness Current Visit: Yes Status: Acute Assessment and Plan: On presentation patient reports generalized weakness with recurrent falls that is gotten progressively worse. Today patient feels as if her weakness has improved attempting to perform ADLs as well as improved appetite. Suspect weakness related to infectious process -compounded by rheumatoid arthritis -We will obtain respiratory infectious panel-which did reveal influenza A -Patient does have appointment with rheumatology next week- -PT OT recommending inpatient rehabilitation case management social worker has been consulted for placement (2) DVT prophylaxis Current Visit: No Status: Acute Assessment and Plan: Subcutaneous heparin (3) HTN (hypertension) Current Visit: No Status: Chronic Assessment and Plan: Blood pressure stable. . Continue with present medications (4) Anemia Current Visit: No Status: Chronic Assessment and Plan: Normocytic anemia with hemoglobin of 10.3 which appears to be near patient's baseline. We will monitor. (5) Multiple falls Current Visit: Yes Status: Acute Assessment and Plan: See above - Time Spent with Patient Total time spent is greater than 50% in coordination of care (as documented) at patient's floor/unit and/or counseling patient: Internal Medicine: Result - Labs CBC & Chem 7: 10/07/18 01:19 10/07/18 01:19 Labs: Short CBC 10/07/18 Range/Units 01:19 WBC 4.2 L (4.3-11.1) K/mcL Hgb 10.3 L (11.5-15.4) g/dL Hct 32.0 L (35.3-44.9) % Plt Count 214 (140-400) K/mcL Neutrophils # 1.8 (1.6-8.9) K/mcL BMP 10/07/18 01:19 Sodium 135 L Potassium 3.8 Chloride 101 Carbon Dioxide 27 BUN 11 Creatinine 1.09 Glucose 92 Calcium 8.8 - ABG Interpretation ABG results: PT/INR, D-dimer PT 13.8 Seconds (9.4-12.1) H 10/04/18 16:04 Consult Discharge Plan - Plan Referrals: Avelina Morejon, [facility]TER [Primary Care Provider] - 10/11/18 3:00 pm () (3) HTN (hypertension) Qualifiers: Hypertension type: essential hypertension Qualified Code(s): I10 - Essential (primary) hypertension (4) Anemia Qualifiers: Anemia type: unspecified type Qualified Code(s): D64.9 - Anemia, unspecified
--- NOTE | 2018-10-07 14:18 | Discharge Summary ---
- NOTES TO OUTPATIENT PROVIDER Notes to Outpatient Provider: Patient was admitted for weakness was found to be influenza A positive we will need to continue [id number] with rheumatology as outpatient will be discharged to [facility] Orders not resulted at time of discharge: Pending orders 10/05/18 10:13 Culture,Blood [BC] Routine Date of Encounter: 10/07/18 Time of Encounter: 14:16 - Discharge Diagnosis (1) Generalized weakness Priority: Primary Status: Acute (2) HTN (hypertension) Priority: Secondary Status: Chronic Qualifiers: Hypertension type: essential hypertension Qualified Code(s): I10 - Essential (primary) hypertension (3) Anemia Priority: Secondary Status: Chronic Qualifiers: Anemia type: unspecified type Qualified Code(s): D64.9 - Anemia, unspecified (4) Multiple falls Priority: Primary Status: Acute Hospital course: Ms. Lo is a 83 year old female past medical history of COPD hypertension rheumatoid arthritis prior TIA carotid endarterectomy who presented to [facility] ED by her family after experiencing a fall. Daughter reports that the patient has been has been growing progressively weak and experiencing recurrent falls over the past week. She has been receiving home healthcare and occupational physical therapy at home. She does have a history of rheumatoid arthritis and is followed by rheumatology as an outpatient -she has appointment with rheumatology next week. She was having fevers at home with temperature of 101.8 she was 102 on presentation she did have a normal white count. Blood cultures have been negative to date Lab work was obtained which appears to be baseline for the patient CT of head was obtained did not show any acute intracranial out of elevated, orthostatic vital signs were obtained and were negative carotid duplex was completed which did show right carotid system has noncirrhotic plaque left and mid ICA had a severe 60-79% stenosis by velocity criteria but no significant plaque is identified the vessel was found to be torturous at this location which may contribute to an elevation of the velocity but not cause any significant stenosis or reduction of flow. Respiratory infectious panel was completed and did reveal patient was influenza A positive she was started on Tamiflu. She was evaluated by PT and OT who recommends inpatient rehabilitation. Patient has slowly improved and has been participating with PT and OT. She did continue to experience fevers during admission however no fevers in the past 24 hours. Patient has had history of hypertension and has been on multiple antihypertensive medications blood pressure has been controlled and we have been holding her rampril she will be discharged to [place] inpatient rehabilitation - Time Spent with Patient Total time spent providing and/or coordinating discharge services: - Discharge Medications Prescriptions: New ALPRAZolam [Xanax 0.5 MG Tablet] 0.25 mg PO HS 2 Days #1 tablet amLODIPine [Norvasc] 10 mg PO HS tablet Oseltamivir Phosphate [Tamiflu] 30 mg PO BID #7 capsule Atorvastatin [Lipitor] 40 mg PO HS tablet Continue BuPROPion [Wellbutrin] 75 mg PO DAILY Clopidogrel [Plavix] 75 mg PO DAILY PARoxetine HCl [Paroxetine HCl] 10 mg PO DAILY Metoprolol Succinate [Toprol Xl] 25 mg PO BID #0 Discontinued Amlodipine Besylate 10 mg PO HS ALPRAZolam [Xanax 0.25 MG Tablet] 0.25 mg PO HS Ramipril [Altace] 10 mg PO DAILY Home Medications: BuPROPion [Wellbutrin] 75 mg PO DAILY 10/05/18 [History] Clopidogrel [Plavix] 75 mg PO DAILY 10/05/18 [History] PARoxetine HCl [Paroxetine HCl] 10 mg PO DAILY 10/05/18 [History] ALPRAZolam [Xanax 0.5 MG Tablet] 0.25 mg PO HS 2 Days #1 tablet 10/07/18 [Rx] Atorvastatin [Lipitor] 40 mg PO HS tablet 10/07/18 [Rx] Metoprolol Succinate [Toprol Xl] 25 mg PO BID #0 10/07/18 [Rx] Oseltamivir Phosphate [Tamiflu] 30 mg PO BID #7 capsule 10/07/18 [Rx] amLODIPine [Norvasc] 10 mg PO HS tablet 10/07/18 [Rx] Allergies/Adverse Reactions: Allergy/AdvReac Type Severity Reaction Status Date / Time Cephalosporins Allergy Hives Verified 11/26/17 11:46 Penicillins Allergy Hives Verified 11/26/17 11:46 Propoxycaine Allergy Hives Verified 11/26/17 11:46 Sulfa (Sulfonamide Allergy Hives Verified 11/26/17 11:46 Antibiotics) acetaminophen [From [place]] AdvReac Nausea Verified 11/26/17 11:46 hydrocodone [From [place]] AdvReac Nausea Verified 11/26/17 11:46 Date of admission: 10/06/18 17:05 Primary care physician: Avelina Morejon CNP Consults: 10/04/18 23:44 Consult to Mine Surveyor [CONS] Routine Reason for SW Consult: has [facility]/ OT but has increase in falls in the past week 10/05/18 09:03 Consult to Physical Therapy [CONS] Routine Comment: Evaluate, develop and implement POC Reason for Consult: Frequent falls. Assess need for further rehabilitation. Does patient have active BEDREST order?: No Is patient medically & hemodynamically stable?: Yes 10/05/18 09:28 Consult to Occupational Therapy [CONS] Routine Comment: Evaluate, develop and implement POC Reason for Consult: frequent falls. possible placement Does patient have active BEDREST order?: No Is patient medically & hemodynamically stable?: Yes Discharging clinician: Yesenia Morton Anticipated date of discharge: 10/07/18 - Constitutional Vitals: Temp Pulse Resp BP Pulse Ox 98.4 F 80 14 102/59 93 10/07/18 11:30 10/07/18 11:30 10/07/18 11:30 10/07/18 11:30 10/07/18 11:30 Exam: Skin: Free of rash and discoloration. Eyes: Sclera is white. There is no discharge from eyes. ENMT: Oral/pharyngeal mucosa is normal in appearance. There is no discharge from nose or ears. Respiratory: Normal breath sounds with no crackles and wheezes bilaterally. CV: Heart is regular with no gallop or murmur. GI: Abdomen is flat and soft with no palpable mass or visceromegaly. : There is no tenderness in patient's flanks bilaterally. Neuro exam: He has good strength in upper and lower extremities. He has normal eye movements. Psychiatric: He has normal affect. His thought process is appropriate to the situation. - Patient Status Disposition: Transfer SNF Condition: Fair Functional capacity at discharge: uses cane/walker Overall status at discharge: patient is back to baseline - Discharge Instructions Follow Up With: Avelina Morejon CNP [Primary Care Provider] - 10/11/18 3:00 pm () - Diet and Activity Activity: as per physical therapy Diet: advance to your usual diet
--- NOTE | 2018-10-07 15:18 | Physician Discharge Referral ---
ExtendedCare Referral Info Transfer To: [facility] Provider in Charge: Yesenia Morton Provider in Charge after Transfer: PCP Institutional Level of Care: Skilled - Diagnosis (1) Generalized weakness Priority: Primary Status: Acute (2) HTN (hypertension) Priority: Secondary Status: Chronic (3) Anemia Priority: Secondary Status: Chronic (4) Multiple falls Priority: Secondary Status: Acute Prognosis: Good - Transfer Medications Prescriptions: ALPRAZolam [Xanax 0.5 MG Tablet] 0.25 mg PO HS 2 Days #1 tablet Home Medications: BuPROPion [Wellbutrin] 75 mg PO DAILY 10/05/18 [History] Clopidogrel [Plavix] 75 mg PO DAILY 10/05/18 [History] PARoxetine HCl [Paroxetine HCl] 10 mg PO DAILY 10/05/18 [History] ALPRAZolam [Xanax 0.5 MG Tablet] 0.25 mg PO HS 2 Days #1 tablet 10/07/18 [Rx] Atorvastatin [Lipitor] 40 mg PO HS tablet 10/07/18 [Rx] Metoprolol Succinate [Toprol Xl] 25 mg PO BID #0 10/07/18 [Rx] Oseltamivir Phosphate [Tamiflu] 30 mg PO BID #7 capsule 10/07/18 [Rx] amLODIPine [Norvasc] 10 mg PO HS tablet 10/07/18 [Rx] Allergies/Adverse Reactions: Allergy/AdvReac Type Severity Reaction Status Date / Time Cephalosporins Allergy Hives Verified 11/26/17 11:46 Penicillins Allergy Hives Verified 11/26/17 11:46 Propoxycaine Allergy Hives Verified 11/26/17 11:46 Sulfa (Sulfonamide Allergy Hives Verified 11/26/17 11:46 Antibiotics) acetaminophen [From [facility]] AdvReac Nausea Verified 11/26/17 11:46 hydrocodone [From [facility]] AdvReac Nausea Verified 11/26/17 11:46 - Respiratory Orders Smoking Cessation: Smoking cessation has been advised. For more information, call the [employer] Tobacco Quit Line at 6-846-UUFE-NOW. - Lab Orders Lab Orders: CBC, [facility] - Ancillary Orders May use pressure relief devices daily prn - Advance Directives Code Status: Full Code - Mobility Orders Ambulate - Rehabiliation Orders Rehab Potential: Good Rehab Orders: Evaluation for Physical Therapy, Evaluation for Occupational Therapy - Diet Orders Cardiac (Patient has follow-up appointment with rheumatology next week) CERTIFICATION: I certify that the transfer of the above named patient to an Extended Care Facility is necessary for the continuing treatment of the diagnosis listed. The above information is true and accurate reflection of patient's current condition. Confidential - Redisclosure prohibited without a patient's written consent.
== END 2018-10-07 16:08 | DRG 195 ==
LOC: EMEROOARM 15:17 → 3BNU 15:17
PROVIDERS: ADMIT Internal Medicine; ATTEND Internal Medicine

== ENCOUNTER 2021-01-06 13:49 | Observation (INO) ==
[2021-01-07] MEDS ORDERED: ALPRAZolam 0.25 MG TABLET PO PRN (10:49)
[2021-01-07] MEDS ORDERED: 0.9 % Sodium Chloride 500 ML IVC SCH (11:00)
[2021-01-07] MEDS ORDERED: PARoxetine 10 MG TABLET PO SCH (11:00)
[2021-01-07] MEDS ORDERED: ALPRAZolam 0.25 MG TABLET PO SCH (11:00)
[2021-01-07] MEDS ORDERED: Lidocaine -MPF 2% 5 ML VIAL ONE (13:20)
[2021-01-07] MEDS ORDERED: *HR* Propofol 200 MG/20 ML VIAL IVP ONE (13:27)
[2021-01-07 16:57] VITALS: BP 129/84
[2021-01-07 18:49] LABS: Adenovirus F 40/41 PCR Not detected (Not detect); Astrovirus PCR Not detected (Not detect); C.difficile Toxin A/B Gene PCR Not detected (Not detect); Campylobacter by PCR Not detected (Not detect); Cryptosporidium by PCR Not detected (Not detect); Cyclospora cayetanensis PCR Not detected (Not detect); E. coli O157 by PCR Not detected (Not detect); Entamoeba histolytica PCR Not detected (Not detect); Enteroaggregative E.coli(EAEC) Not detected (Not detect); Enteropathogenic E.coli(EPEC) Not detected (Not detect); Enterotoxigenic E.coli (ETEC) Not detected (Not detect); Giardia lamblia PCR Not detected (Not detect); Norovirus GI/GII PCR Not detected (Not detect); Plesiomonas shigelloides PCR Not detected (Not detect); Rotavirus A PCR Not detected (Not detect); Salmonella PCR Not detected (Not detect); Sapovirus PCR Not detected (Not detect); Shig/EnteroinvasiveE coli EIEC Not detected (Not detect); Shigalike tox-prod E coli STEC Not detected (Not detect); Vibrio PCR Not detected (Not detect); Vibrio cholerae PCR Not detected (Not detect); Yersinia enterocolitica PCR Not detected (Not detect)
== END 2021-01-07 17:52 | disposition home or self-care (01) ==
LOC: 3BNU
PROVIDERS: ADMIT Internal Medicine Gastroenterology; ATTEND Internal Medicine Gastroenterology
PROC: ENDOEBX (2021-01-07 13:00)
PROC: ENDOCBX (2021-01-07 13:00)